=== PATIENT | male | born 1955 | race Caucasian/White ===

== ENCOUNTER 2019-03-14 20:17 | Emergency (ER) | payer MEDICARE, OTHER ==
[~2019-03-14] VITALS: Ht 180.3 cm; Wt 117.0 kg
[~2019-03-14 20:17] MED LIST: AMLODIPINE-BEN1 EACH PO; BACLOFEN10 MG PO; DIAZEPAM5 MG PO; FLAGYL250 MG PO; GABAPENTIN300 MG PO; GLIMEPIRIDE2 MG PO; HYDROCODON-ACE1 EAC9 PO; LEVAQUIN500 MG PO; NAPROXEN250 MG PO; NEXIUM40 MG PO; PREDNISONE20 MG PO
--- OUTSIDE RECORDS SUMMARY | 2019-03-14 20:20 | XMS REPORT | Clinical Summary ---
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 Active esomeprazole (NEXIUM) 40 Take 40 mg by 0 MG capsule mouth daily. Active glipiZIDE-metFORMIN Take 1 tablet 0 (METAGLIP) 5-500 mg per by mouth 2 tablet (two) times daily before meals. Active lidocaine (XYLOCAINE) 2 % Apply 0 jelly topically as needed. Active pravastatin (PRAVACHOL) Take 40 mg by 0 40 MG tablet mouth daily. Active diazePAM (VALIUM) 10 MG Take 10 mg by 0 tablet mouth every 6 (six) hours as needed for Anxiety. Active LORAZEPAM ORAL Take by mouth 0 as needed. Active amLODIPine-benazepril Take 1 0 (LOTREL 5-20) 5-20 mg per capsule by capsule mouth daily. Active HYDROcodone-acetaminophen Take 1 tablet 40 tablet 0 (NORCO 10-325) 10-325 mg by mouth 8 per tablet every 4 (four) hours as needed for Pain. Max Daily Amount: 6 tablets 03/14/2018 furosemide (LASIX) 20 MG Take 1 tablet 7 tablet 0 tablet (20 mg total) 8 by mouth daily for 7 days. 03/21/2018 gabapentin (NEURONTIN) Take 1 42 capsule 0 300 MG capsule capsule (300 8 mg total) by mouth 3 (three) times daily for 14 days. 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 Last Filed Vital Signs Not on file Plan of Treatment Not on file Implants Device Identifier Shelf Expiration Date Model / Serial / Lot Implanted Type Area Manufactur er [id number] 02/10/2019 4301-02 / / [id number] Memb [employer]ra[employer] Adhen [place] 5x6 Cement/Brian N/A: Abdomen GENZYME 4301-02 - [id number] ler/Adhesi DONAL: Implanted: Qty: 1 on 12/19/2016 by ve BIO-SURG Cristopher Gonzalez MD Procedures Comments Procedure Name Priority Date/Time Associated Diagnosis INTRAOPERATIVE PATH 11/27/2018 REPORT - SCAN 6:53 AM CDT after 03/13/2018 Results * INTRAOPERATIVE PATH REPORT - SCAN (11/27/2018 6:53 AM CDT) Narrative Performed At after 03/13/2018 Insurance Payer Benefit Subscriber ID Type Phone Address Plan / Group [facility] xxxxxxxxxxx MEDICARE ADV Advance Directives Patient has advance care planning documents, and code status on file. For more i nformation, please contact: [facility] [address] [place], [place] [id number] Date Inactivated Comments Code Status Date Activated 03/07/2018 7:27 PM Full Code 03/06/2018 12:44 PM This code status was determined by: Patient 03/06/2018 12:44 PM Full Code 03/06/2018 6:43 AM This code status was determined by: Patient 12/27/2016 4:30 PM Full Code 12/19/2016 8:48 AM This code status was determined by: Patient
--- OUTSIDE RECORDS SUMMARY | 2019-03-14 20:21 | XMS REPORT ---
Author Author [facility] Address Unknown Phone Unavailable Care Team Providers Care Sock Boarder Name Role Phone CHRISTY CORDOVA Unavailable Unavailable MELVIN CAMEJO Unavailable Unavailable MARIAM, OSVALDO JAEGER Unavailable Unavailable Problems This patient has no known problems. Allergies, Adverse Reactions, Alerts This patient has no known allergies or adverse reactions. Medications This patient has no known medications. Results Test Description Test Time Test Comments Text Results Atomic Results Result Comments AFB CULTURE + SMEAR 2018-04-20 13:38:00 CULTURE (BEAKER) (test oiof=9882) No acid-fast bacilli isolated in 42 days AFB SMEAR (BEAKER) (test vyfz=736) No acid fast bacilli seen FUNGUS CULTURE + [id number] 18:31:00* Test Item Value Reference Range Comments CULTURE (BEAKER) (test ebdr=9377) 1 out of 2 media Paecilomyces lilacinus FUNGUS SMEAR (BEAKER) (test qsir=8579) No fungi seen TISSUE [id number] 18:14:00Surgical Pathology Report Case: [id number] Authorizing Provider: Guanaco Cordova MD Collected: 03/06/2018 0957 Ordering Location: [facility] Received: 03/06/2018 1041 PERIOPERATIVE SERVICES Pathologist: Fadumo Newby MD Specimens: A) - Lymph Node, 2 and 4 Lymph nodes pocket containing at least 3 lymph nodes B) - Lung, Right Upper Lobe, RIGHT UPPER LOBE WEDGE RESECTION , FROZEN THE MARGINS C) - Lymph Node, Pulmonary Ligament, Station 9, STATION 9 LYMPH NODE -PERMANENT D) - Lymph Node, STATION 7 LYMPH NODE POCKET CONTAINING AT LEAST 4 LYMPH NODES E) - Lymph Node, Station 11 Lymph Node F) - Lymph Node, Station 10 Lymph Node A. LYMPH NODE, STATIONS 2 AND 4, EXCISION: - FOUR BENIGN LYMPH NODES (0/4)B. LUNG, RIGHT UPPER LOBE, WEDGE RESECTION AND PARIETAL PLEURA, ENBLOC RESECTION: - INVASIVE SQUAMOUS CELL CARCINOMA, POORLY DIFFERENTIATED - GREATEST DIMENSION OF TUMOR: 3.2 CM - TUMOR INVADES THROUGH THE VISCERAL PLEURA AND EXTENDS TO THE PARIETAL PLEURA - STAPLED PARENCHYMAL MARGIN AND INKED PARIETAL PLEURAL SURFACE, NEGATIVE FOR CARCINOMA - LYMPHOVASCULAR INVASION IS PRESENT - NEGATIVE FOR PERINEURAL INVASION - ONE LYMPH NODE, NEGATIVE FOR METASTATIC CARCINOMA (0/1) - PATHOLOGIC STAGE CLASSIFICATION: [id number] C. LYMPH NODE, STATION 9, EXCISION: - ONE BENIGN LYMPH NODE (0/1)D. LYMPH NODE, STATION 7, EXCISION: - FIVE BENIGN LYMPH NODES (0/5)E. LYMPH NODE, STATION 11, EXCISION: - ONE BENIGN LYMPH NODE (0/1)F. LYMPH NODE, STATION 10, EXCISION: - ONE BENIGN LYMPH NODE (0/1) Signing Pathologist Direct Phone Line: [phone] signed by Fadumo Newby MD on 03/13/2018 at 6:14 PMLUNG (Lung - All Specimens)SPECIMEN Procedure: Wedge resection Procedure: Parietal pleurectomy Specimen Laterality: Right TUMOR Tumor Site: Upper lobe Histologic Type: Invasive squamous cell carcinoma, keratinizing Histologic Grade: G3: Poorly differentiated : Tumor Size: Greatest dimension in Centimeters (cm): 3.2 Centimeters (cm) Additional Dimension in Centimeters (cm): 2.4 Centimeters (cm) Add itional Dimension in Centimeters (cm): 1.8 Centimeters (cm) Tumor Focality: Single tumor Tumor Extent: Visceral Pleura Invasion: Present Dire ct Invasion of Adjacent Structures: Adjacent structures present and involved : Parietal pleura Accessory Findings: Treatment Effect: No kno wn presurgical therapy Lymphovascular Invasion: Present : Lymphati c : Arterial MARGINS Margins: All margins are uninvolved by carcinoma Margins Examined: Parenchymal Margins Examined: parietal pleural miller rface/ margin Distance of Invasive Carcinoma from Closest Margin in Centimete rs (cm): 0.5 Centimeters (cm) Closest Margin: Parenchymal LYMPH NODES Number of Lymph Nodes Involved: 0 Number of Lymph Nodes Examined: 13 N odal Stations Examined: 2R: Upper paratracheal Alfonzo Stations Examined: 4R: Lower paratracheal Alfonzo Stations Examined: 9R: Pulmonary ligament Alfonzo Stations Examined: 10R: Hilar Alfonzo Stations Examined: 11R: Inte rlobar Alfonzo Stations Examined: 7: Subcarinal PATHOLOGIC STAGE CLASSIFICAT ION (pTNM, AJCC 8th Edition) Primary Tumor (pT): pT3 Regional Lymph Nodes (p N): pN0 [id number] neoplasm of lungThe specimen is recei lima in six parts labeled with the patient's name and accession number, which cor responds to the patient's same name and accession number on the accompanying req uisition form.Part A: Received in formalin labeled "lymph node" consists of a 3. 8 x 3.7 x 1.3 cm aggregate of noble-yellow fibroadipose tissue, which yields four candidate lymph nodes ranging from 0.2 to 0.4 cm in greatest dimension. Sections are submitted as follows: A1, two candidate lymph nodes, whole; A2, two bianca te lymph nodes, whole.Part B: Received fresh for intraoperative consultation and labeled "lung, right upper lobe" is a 9.9 x 4.6 x 2.2 cm lung wedge resection w ith a Y-shaped 9.4 x 4.2 cm staple line marking the parenchymal margin and a fir m noble-white fungating lesion on the pleural surface measuring 3.2 x 2.4 cm and l ocated 2.2 cm from the nearest staple line. The remainder of the pleural surface is a smooth and glistening noble-janette.The staple line is removed, and the speci men is serially sectioned along the short axis. The lesion has a depth of 1.8 cm and has an alternatively firm to soft noble-white cut surface with diffuse anthra cotic pigmentation. It measures 1.1 cm from the parenchymal margin. The remainde r of the lung parenchyma is a spongy, homogeneous and unremarkable noble-janette. R epresentative sections are submitted as follows.Ink code: Blue-parenchymal sita n, green-lesion at pleural surface.Section code: FSB1-B2, segment of parenchymal margin nearest to lesion; B3-B4, remainder of stapled margin; B5-B8, representa tive tumor nearest to parenchymal margin; B9-B10, personal service representative tumor at pleura l surface; B12-B13, personal service representative tumor; B14-B15, grossly normal lung parenchym a.Part C: Received in formalin labeled "lymph node pulmonary ligament station 9" consists of a 0.3 x 0.2 x 0.1 cm piece of noble to black soft tissue, which is miller bmitted in its entirety in cassette C1.Part D: Received in formalin labeled "sta tion 7 lymph node packet" consists of a 2.7 x 1.9 x 1.1 cm aggregate of noble-yell ow fibroadipose soft tissue, which yields five candidate lymph nodes ranging fro m 0.3 to 0.5 cm in greatest dimension. Program Assistant sections are submitted as follows: D1, three candidate lymph nodes, whole; D2, two candidate lymph nodes, whole.Part E: Received in formalin labeled "station 11 lymph node" consists of a 0.7 x 0.4 x 0.2 cm aggregate of red-brown soft tissue pieces, which are submitt ed in their entirety in cassette E1.Part F: Received in formalin labeled "lymph node" consists of a 0.4 x 0.4 x 0.2 cm piece of noble-brown soft tissue, which is submitted in toto in cassette F1. WY/ewPART B, LUNG, RIGHT UPPER LOBE, WEDGE RES ECTION: - NEGATIVE FOR INVASIVE CANCER (FEW DYSPLASTIC EPITHELIAL CELLS NEAR ON E SMALL AIRWAY) - THESE RESULTS ARE VERBALLY REPORTED TO DR. CORDOVA BY DR. NITHYA Youssef AT 11:16 A.M. A-F. Performed.The following special studies were performed on emmie snyder case and the interpretation is incorporated in the diagnostic report above:Emmie ramsey immunohistochemistry test was developed and its performance characteristics d etermined by [facility], Pathology Laboratory. It has not been cleared or approved by the U.S. Food and Drug Administration. The FDA has deter mined that such clearance or approval is not necessary. The test is used for cli nical purposes. It should not be regarded as investigational or for research. is laboratory is certified under the Clinical Laboratory Improvement Amendments of 1988 (CLIA-88) as qualified to perform high complexity clinical laboratory te sting.SURGICALLY OBTAINED CULTURE + GRAM [id number] 10:24:00* Test Item Value Reference Range Comments CULTURE (BEAKER) (test yttw=1057) See comment GRAM STAIN RESULT (BEAKER) (test bzfd=5967) <1+ WBCs GRAM STAIN RESULT (BEAKER) (test llxo=991492) No organisms seen <1+ Normal respiratory heidi presentPreviously reported organism is no longer reported. Please contact the Microbiology Department for additional information.RAD, CHEST, 1 VIEW, NON [id number] 15:18:00Reason for exam:->s/p chest tube removalShould this be performed at the bedside?->YesFINAL REPORT CLINICAL HISTORY: s/p chest tube removal TECHNIQUE: 1 view of the chest. COMPARISON: 03/07/2018 IMPRESSION: The right-sided chest tube has been removed. There is no pneumothorax. The medial right upper lung masslike opacity is unchanged. Pulmonary vascular congestive findings are again seen. There is no increasing pleural fluid. The cardiomediastinal silhouette is magnified by technique. Signed: Terrence Ramirez MDReport Verified Date/Time: 0 03/07/2018 15:18:08 Reading Location: [facility] C013W Consult Reading Room Elec tronically signed by: TERRENCE RAMIREZ M.D. on 03/07/2018 03:18 PM RAD, CHEST, 1 VIEW, NON [id number] 12:06:00Reason for exam:->ct to water sealShould this be performed at the bedside?->YesFINAL REPORT CLINICAL HISTORY: ct to water seal TECHNIQUE: 1 view of the chest. COMPARISON: 03/07/2018 IMPRESSION: Right apical chest tube is again seen without definitive evidence for pneumothorax. A medial right upper lung mass is again noted. Pulmonary vascular congestive findings are again seen. The cardiomediastinal silhouette is magnified by technique. Signed: Terrence Ramirez MDReport Verified Date/Time: 03/07/2018 12:06:46 Reading Location: [facility] Radiology Reading Room , CHEST, 1 VIEW, NON [id number] 07:24:00Reason for exam:->ptxShould this be performed at the bedside?->YesFINAL REPORT CLINICAL HISTORY: ptx TECHNIQUE: 1 view of the chest. COMPARISON: 03/05/2018 IMPRESSION: A right apical chest tube is again seen without definitive evidence for pneumothorax. Medial right upper lung mass is unchanged. Prominence of the pulmonary vasculature is again seen. The cardiomediastinal silhouette is magnified by technique. Cervical fusion hardware is again seen. Signed: Terrence Ramirez MDReport Verified Date/Time: 03/07/2018 07:24:36 Reading Location: [facility] Radiology Reading Room [id number] 03:25:00* Test Item Value Reference Range Comments MAGNESIUM (BEAKER) (test vtra=376) 2.0 mg/dL 1.6-2.6 BASIC METABOLIC [id number] 03:25:00* Test Item Value Reference Range Comments SODIUM (BEAKER) (test vvky=086) 133 meq/L 136-145 POTASSIUM (BEAKER) (test knhx=898) 4.1 meq/L 3.5-5.1 CHLORIDE (BEAKER) (test uwmz=710) 104 meq/L 98-107 CO2 (BEAKER) (test fzfq=931) 22 meq/L 22-29 BLOOD UREA NITROGEN (BEAKER) (test pemc=443) 17 mg/dL 7-21 CREATININE (BEAKER) (test qgqn=812) 0.77 mg/dL 0.57-1.25 GLUCOSE RANDOM (BEAKER) (test rgpv=642) 125 mg/dL 70-105 CALCIUM (BEAKER) (test bpru=674) 8.7 mg/dL 8.4-10.2 EGFR (BEAKER) (test yfut=2512) 102 mL/min/1.73 sq m ESTIMATED GFR IS NOT ACCURATE CREATININE CLEARANCE IN PREDICTING GLOMERULAR FILTRATION RATE. ESTIMATED GFR IS NOT APPLICABLE FOR DIALYSIS PATIENTS. CBC W/PLT COUNT & AUTO [id number] 03:12:00* Test Item Value Reference Range Comments WHITE BLOOD CELL COUNT (BEAKER) (test rnwu=784) 13.5 K/ L 3.5-10.5 RED BLOOD CELL COUNT (BEAKER) (test iibg=037) 4.68 M/ L 4.63-6.08 HEMOGLOBIN (BEAKER) (test gwhx=063) 13.7 GM/DL 13.7-17.5 HEMATOCRIT (BEAKER) (test bpgp=164) 42.8 % 40.1-51.0 MEAN CORPUSCULAR VOLUME (BEAKER) (test knim=462) 91.5 fL 79.0-92.2 MEAN CORPUSCULAR HEMOGLOBIN (BEAKER) (test adad=658) 29.3 pg 25.7-32.2 MEAN CORPUSCULAR HEMOGLOBIN CONC (BEAKER) (test hohd=192) 32.0 GM/DL 32.3-36.5 RED CELL DISTRIBUTION WIDTH (BEAKER) (test qvxo=339) 13.5 % 11.6-14.4 PLATELET COUNT (BEAKER) (test jrgo=699) 181 K/CU MM 150-450 MEAN PLATELET VOLUME (BEAKER) (test qvml=425) 10.8 fL 9.4-12.4 NUCLEATED RED BLOOD CELLS (BEAKER) (test awdr=384) 0 /100 WBC 0-0 NEUTROPHILS RELATIVE PERCENT (BEAKER) (test azgz=874) 79 % LYMPHOCYTES RELATIVE PERCENT (BEAKER) (test svbz=745) 10 % MONOCYTES RELATIVE PERCENT (BEAKER) (test jksn=524) 9 % EOSINOPHILS RELATIVE PERCENT (BEAKER) (test ajxr=394) 1 % BASOPHILS RELATIVE PERCENT (BEAKER) (test zkpr=312) 0 % NEUTROPHILS ABSOLUTE COUNT (BEAKER) (test coyw=725) 10.69 K/ L 1.78-5.38 LYMPHOCYTES ABSOLUTE COUNT (BEAKER) (test wwmh=079) 1.37 K/ L 1.32-3.57 MONOCYTES ABSOLUTE COUNT (BEAKER) (test ftqz=577) 1.22 K/ L 0.30-0.82 EOSINOPHILS ABSOLUTE COUNT (BEAKER) (test pmrj=771) 0.08 K/ L 0.04-0.54 BASOPHILS ABSOLUTE COUNT (BEAKER) (test iptt=173) 0.05 K/ L 0.01-0.08 IMMATURE GRANULOCYTES-RELATIVE PERCENT (BEAKER) (test dpwx=0019) 1 % 0-1 RAD, CHEST, 1 VIEW, NON [id number] 15:06:00Reason for exam:->ptxShould this be performed at the bedside?->YesFINAL REPORT TECHNIQUE: Frontal chest radiograph dated 03/06/2018. CLINICAL HISTORY: PTX COMPARISON STUDY: Chest radiograph dated 12/11/2017 IMPRESSION:There is a right-sided chest tube in place. Small amount of subcutaneous emphysema seen in the inferior lateral right chest wall. It is unclear of the linear lucency in the right apex a small pneumothorax versus subcutaneous emphysema. Small amount of bibasilar atelectasis. No pleural effusion. Cardiomediastinal silhouette is normal in size. No pulmonary edema. Anterior cervical fusion hardware is visualized in the cervical spine. No fracture. Signed: Rene White MDReport Verified Date/Time: 03/06/2018 15:06:07 Reading Location: [facility] Radiology Reading Room [id number] 13:23:00* Test Item Value Reference Range Comments MAGNESIUM (BEAKER) (test mdcx=270) 2.2 mg/dL 1.6-2.6 BASIC METABOLIC [id number] 13:23:00* Test Item Value Reference Range Comments SODIUM (BEAKER) (test ahog=087) 139 meq/L 136-145 POTASSIUM (BEAKER) (test tmtg=952) 4.6 meq/L 3.5-5.1 CHLORIDE (BEAKER) (test nvhy=722) 108 meq/L 98-107 CO2 (BEAKER) (test kakt=060) 21 meq/L 22-29 BLOOD UREA NITROGEN (BEAKER) (test lmul=266) 20 mg/dL 7-21 CREATININE (BEAKER) (test orfq=080) 1.04 mg/dL 0.57-1.25 GLUCOSE RANDOM (BEAKER) (test myuy=854) 142 mg/dL 70-105 CALCIUM (BEAKER) (test vgij=077) 8.9 mg/dL 8.4-10.2 EGFR (BEAKER) (test jizk=0934) 72 mL/min/1.73 sq m ESTIMATED GFR IS NOT ACCURATE CREATININE CLEARANCE IN PREDICTING GLOMERULAR FILTRATION RATE. ESTIMATED GFR IS NOT APPLICABLE FOR DIALYSIS PATIENTS. POTASSIUM-STAT [id number] 13:02:00* Test Item Value Reference Range Comments POTASSIUM (BEAKER) (test nuqv=764) 4.5 meq/L 3.6-5.5 HGB/HCT (H&H) - STAT [id number] 13:02:00* Test Item Value Reference Range Comments HEMOGLOBIN (BEAKER) (test xuac=393) 14.8 g/dL 13.0-16.8 HEMATOCRIT (BEAKER) (test httd=781) 44.0 % 40.0-50.0 CALCIUM, [id number] 13:02:00* Test Item Value Reference Range Comments CALCIUM IONIZED (BEAKER) (test yftt=890) 1.14 mmol/L 1.12-1.27 PH, BLOOD (BEAKER) (test ecsx=2196) 7.30 GLUCOSE-STAT [id number] 13:02:00* Test Item Value Reference Range Comments GLUCOSE RANDOM (BEAKER) (test ukdc=811) 138 mg/dL 70-110 CBC (HEMOGRAM ONLY)2018-03-06 12:53:00* Test Item Value Reference Range Comments WHITE BLOOD CELL COUNT (BEAKER) (test umge=949) 17.6 K/ L 3.5-10.5 RED BLOOD CELL COUNT (BEAKER) (test nekx=897) 4.78 M/ L 4.63-6.08 HEMOGLOBIN (BEAKER) (test dizp=041) 14.1 GM/DL 13.7-17.5 HEMATOCRIT (BEAKER) (test pxej=014) 42.6 % 40.1-51.0 MEAN CORPUSCULAR VOLUME (BEAKER) (test eore=796) 89.1 fL 79.0-92.2 MEAN CORPUSCULAR HEMOGLOBIN (BEAKER) (test iztr=582) 29.5 pg 25.7-32.2 MEAN CORPUSCULAR HEMOGLOBIN CONC (BEAKER) (test madx=282) 33.1 GM/DL 32.3-36.5 RED CELL DISTRIBUTION WIDTH (BEAKER) (test pmmo=062) 13.2 % 11.6-14.4 PLATELET COUNT (BEAKER) (test qaci=732) 184 K/CU MM 150-450 MEAN PLATELET VOLUME (BEAKER) (test ktbm=892) 10.8 fL 9.4-12.4 NUCLEATED RED BLOOD CELLS (BEAKER) (test vpzt=357) 0 /100 WBC 0-0 BLOOD GAS, [id number] 09:39:00* Test Item Value Reference Range Comments PH ARTERIAL (BEAKER) (test avsn=302) 7.24 7.35-7.45 PCO2 ARTERIAL (BEAKER) (test bawm=209) 59 mm Hg 35-45 PO2 ARTERIAL (BEAKER) (test kvkt=656) 77 mm Hg 80-90 O2 SATURATION ARTERIAL (BEAKER) (test kubm=515) 94.3 % 96.0-97.0 HCO3 ARTERIAL (BEAKER) (test dftg=928) 25 mmol/L 21-29 BASE EXCESS ARTERIAL (BEAKER) (test cwrc=553) -3.8 mmol/L -2.0-3.0 PATIENT TEMPERATURE (BEAKER) (test igel=5402) 35.4 FIO2 (BEAKER) (test crdz=2028) 100 GLUCOSE-STAT [id number] 09:39:00* Test Item Value Reference Range Comments GLUCOSE RANDOM (BEAKER) (test kofj=936) 162 mg/dL 70-110 HGB/HCT (H&H) - STAT [id number] 09:39:00* Test Item Value Reference Range Comments HEMOGLOBIN (BEAKER) (test dczc=107) 15.7 GM/DL 13.0-16.8 HEMATOCRIT (BEAKER) (test rwco=504) 46.0 % 40.0-50.0 POTASSIUM-STAT [id number] 09:39:00* Test Item Value Reference Range Comments POTASSIUM (BEAKER) (test vkhs=295) 4.7 meq/L 3.6-5.5 SODIUM NA-STAT [id number] 09:39:00* Test Item Value Reference Range Comments SODIUM (BEAKER) (test qcqy=843) 140 meq/L 135-148 CALCIUM, [id number] 09:38:00* Test Item Value Reference Range Comments CALCIUM IONIZED (BEAKER) (test kvfe=604) 1.19 mmol/L 1.12-1.27 PH, BLOOD (BEAKER) (test whxl=1018) 7.22 BASIC METABOLIC [id number] 08:00:00* Test Item Value Reference Range Comments SODIUM (BEAKER) (test lcfl=831) 137 meq/L 136-145 POTASSIUM (BEAKER) (test ciqu=188) 4.3 meq/L 3.5-5.1 CHLORIDE (BEAKER) (test uxwj=291) 104 meq/L 98-107 CO2 (BEAKER) (test grix=500) 23 meq/L 22-29 BLOOD UREA NITROGEN (BEAKER) (test avun=789) 19 mg/dL 7-21 CREATININE (BEAKER) (test voyz=747) 0.90 mg/dL 0.57-1.25 GLUCOSE RANDOM (BEAKER) (test qeii=817) 120 mg/dL 70-105 CALCIUM (BEAKER) (test ejtv=383) 10.2 mg/dL 8.4-10.2 EGFR (BEAKER) (test mvwh=4961) 85 mL/min/1.73 sq m ESTIMATED GFR IS NOT ACCURATE CREATININE CLEARANCE IN PREDICTING GLOMERULAR FILTRATION RATE. ESTIMATED GFR IS NOT APPLICABLE FOR DIALYSIS PATIENTS. [id number] 07:37:00* Test Item Value Reference Range Comments PARTIAL THROMBOPLASTIN TIME (BEAKER) (test nawd=120) 30.9 seconds 22.5-36.0 PROTHROMBIN TIME/[id number] 07:36:00* Test Item Value Reference Range Comments PROTIME (BEAKER) (test enri=800) 13.0 seconds 11.7-14.7 INR (BEAKER) (test pfyv=298) 1.0 <=5.9 RECOMMENDED COUMADIN/WARFARIN INR THERAPY RANGESSTANDARD DOSE: 2.0 - 3.0 Inclu linden: PROPHYLAXIS for venous thrombosis, systemic embolization; TREATMENT for kimberly ous thrombosis and/or pulmonary embolus.HIGH RISK: Target INR is 2.5-3.5 for pat ients with mechanical heart valves.CBC W/PLT COUNT & AUTO [id number] 07:19:00* Test Item Value Reference Range Comments WHITE BLOOD CELL COUNT (BEAKER) (test byco=702) 9.5 K/ L 3.5-10.5 RED BLOOD CELL COUNT (BEAKER) (test kwrg=688) 5.33 M/ L 4.63-6.08 HEMOGLOBIN (BEAKER) (test ghnr=012) 15.7 GM/DL 13.7-17.5 HEMATOCRIT (BEAKER) (test grny=441) 46.9 % 40.1-51.0 MEAN CORPUSCULAR VOLUME (BEAKER) (test tyjw=593) 88.0 fL 79.0-92.2 MEAN CORPUSCULAR HEMOGLOBIN (BEAKER) (test etnw=656) 29.5 pg 25.7-32.2 MEAN CORPUSCULAR HEMOGLOBIN CONC (BEAKER) (test jeyo=540) 33.5 GM/DL 32.3-36.5 RED CELL DISTRIBUTION WIDTH (BEAKER) (test vora=628) 13.2 % 11.6-14.4 PLATELET COUNT (BEAKER) (test shkw=119) 198 K/CU MM 150-450 MEAN PLATELET VOLUME (BEAKER) (test mkwm=854) 11.0 fL 9.4-12.4 NUCLEATED RED BLOOD CELLS (BEAKER) (test lech=742) 0 /100 WBC 0-0 NEUTROPHILS RELATIVE PERCENT (BEAKER) (test yfyc=829) 76 % LYMPHOCYTES RELATIVE PERCENT (BEAKER) (test joaa=739) 14 % MONOCYTES RELATIVE PERCENT (BEAKER) (test yvmj=198) 7 % EOSINOPHILS RELATIVE PERCENT (BEAKER) (test gjug=499) 1 % BASOPHILS RELATIVE PERCENT (BEAKER) (test wtyn=086) 1 % NEUTROPHILS ABSOLUTE COUNT (BEAKER) (test baxw=321) 7.26 K/ L 1.78-5.38 LYMPHOCYTES ABSOLUTE COUNT (BEAKER) (test tsnj=039) 1.30 K/ L 1.32-3.57 MONOCYTES ABSOLUTE COUNT (BEAKER) (test akjq=975) 0.70 K/ L 0.30-0.82 EOSINOPHILS ABSOLUTE COUNT (BEAKER) (test chkh=412) 0.13 K/ L 0.04-0.54 BASOPHILS ABSOLUTE COUNT (BEAKER) (test wuor=467) 0.07 K/ L 0.01-0.08 IMMATURE GRANULOCYTES-RELATIVE PERCENT (BEAKER) (test bxio=7335) 0 % 0-1 TISSUE [id number] 16:55:00Surgical Pathology Report Case: [id number] Authorizing Provider: Fredy Camejo MD Collected: 12/11/2017 1358 Ordering Location: [facility] Radiology Main Received: 12/11/2017 1611 Pathologist: Fadumo Newby MD Specimen: Lung, Right A. LUNG, RIGHT UPPER LOBE MASS, CT GUIDED CORE NEEDLE BIOPSY: - SQUAMOUS CELL CARCINOMA Signing Pathologist Direct Phone Line: [phone] signed by Fadumo Newby MD on 12/12/2017 at 4:55 [id number] upper lobe lung biopsy Specimen is received in formalin-filled container labeled with the patient's information and labeled "right upper lobe lung biopsy" and consists of five noble core biopsies ranging from 0.2 to 0.5 cm submitted entirely A1. CG/bc A. Immunostain for p40 is positive and OUMOU-3 is negative supporting the above diagnosis.RAD, CHEST, 1 VIEW, NON [id number] 16:42:00Reason for exam:->S/P right lung biopsyShould this be performed at the bedside?->YesFINAL REPORT TECHNIQUE: Frontal view of the chest. INDICATION: 62-year-old man after right lung biopsy. COMPARISON: Chest radiograph from earlier same date. FINDINGS: LINES/TUBES: None. LUNGS: Unchanged nodular opacity in the medial right upper lung zone correlates with recently biopsied mass. Left lung is clear. PLEURA: No pneumothorax or significant pleural effusion. HEART AND MEDIASTINUM: The cardiomediastinal silhouette is within normal limits. Tortuous thoracic aorta. SOFT TISSUES AND BONES: Unchanged partially visualized fusion hardware in the lower cervical spine. Soft tissues are unremarkable. IMPRESSION:No acute cardiopulmonary abnormalities after recent right lung biopsy. Signed: Chet Mendenhall MDReport Verified Date/Time: 12/11/2017 16:42:37 Reading Location: [facility] C013Y CT Body Reading Room , BIOPSY, [id number] 15:55:00Reason for Exam:-> Nodule of right lungFINAL REPORT PROCEDURE: CT-guided core biopsy of right upper lobe mass. Dose modulation, iterative reconstruction, and/or weight-based adjustment of the mA/kV was utilized to reduce the radiation dose to as low as reasonably achievable. INDICATION: 62-year-old man with nodule of right lung. COMPARISON: None. SEDATION: Intravenous moderate sedation was administered by radiology nursing and monitored under the direction of the undersigned radiologist. The patient's vital signs were monitored throughout the procedure and recorded in the patient's medical record by radiology nursing. Total intraservice time of sedation was 30 minutes. MEDICATIONS: 1.5 mg Versed, 75 mcg fentanyl DESCRIPTION: After obtaining informed written consent, the patient was brought to the CT scanner and placed in the supine position. Preliminary CT scan of the chest revealed 3.2 x 3 cm mass in the medial right upper lobe abutting the right mediastinum. This mass was targeted for biopsy. The overlying skin was prepped and draped in the usual, sterile fashion and local 1% lidocaine anesthesia was administered. Under CT guidance, a 19-gauge introducer needle was inserted into the anterior right chest and placed into the mass via an intercostal approach. The inner stylette was removed, and a 20-gauge Argon core biopsy was passed through the introducer and into the mass. Four core biopsy samples of the mass were obtained. The needles were removed. Follow-up CT scan revealed no pneumothorax or significant hematoma. There were no immediate complications. IMPRESSION:Uncomplicated CT-guided core biopsy of right upper lobe mass. Signed: Chet Mendenhall MDReport Verified Date/Time: 12/11/2017 15:55:27 Reading Location: [address] Body Reading Room , CHEST, 1 VIEW, NON [id number] 14:17:00Reason for exam:->S/P lung biopsyShould this be performed at the bedside?->NoFINAL REPORT TECHNIQUE: Frontal view of the chest. INDICATION: 62-year-old man after right lung biopsy. COMPARISON: CT-guided right lung biopsy from earlier same date. FINDINGS: LINES/TUBES: None. LUNGS: Subtle nodular opacity in the medial right upper lung zone correlates with recently biopsied mass. Left lung is clear. PLEURA: No pneumothorax or significant pleural effusion. HEART AND MEDIASTINUM: The cardiomediastinal silhouette is within normal limits. Tortuous thoracic aorta. SOFT TISSUES AND BONES: Partially visualized fusion hardware in the lower cervical spine. Soft tissues are unremarkable. IMPRESSION:No acute cardiopulmonary abnormalities after recent right lung biopsy. Signed: Chet Mendenhall MDReport Verified Date/Time: 12/11/2017 14:17:17 Reading Location: [facility] C013Y CT Body Reading Room /[id number] 11:03:00* Test Item Value Reference Range Comments PROTIME (BEAKER) (test jvyk=074) 13.1 seconds 11.7-14.7 INR (BEAKER) (test zghp=987) 1.0 <=5.9 PARTIAL THROMBOPLASTIN TIME (GARRY) (test urhw=656) 29.9 seconds 22.5-36.0 RECOMMENDED COUMADIN/WARFARIN INR THERAPY RANGESSTANDARD DOSE: 2.0 - 3.0 Inclu linden: PROPHYLAXIS for venous thrombosis, systemic embolization; TREATMENT for kimberly ous thrombosis and/or pulmonary embolus.HIGH RISK: Target INR is 2.5-3.5 for pat ients with mechanical heart valves.PLATELET [id number] 10:55:00* Test Item Value Reference Range Comments PLATELET COUNT (GARRY) (test kflk=120) 210 K/CU MM 150-450 MR, ABDOMEN, [id number] 17:36:00FINAL REPORT MRI of the abdomen. CLINICAL HISTORY: LUNG NODULE. COMPARISON STUDY: None. Technique: Multiplanar, multisequence imaging of the abdomen was acquired both pre and post administration of intravenous gadolinium in a dynamic fashion. No oral contrast was administered. FINDINGS: No pleural effusion is seen. The liver demonstrates a noncirrhotic morphology. Multiple cysts are seen throughout, the largest include a 3.9 x 1.9 cm lobulated septated cyst in midline, 1.9 x 1.6 cm cyst in the right hepatic dome, and multiple other cysts throughout. A 9 mm enhancing lesion is seen in the posterior segment of the right lobe with no washout or T2 weighted signal, most likely a small shunt. The main portal vein is widely patent measuring 1.7 cm. A tiny right renal cyst is seen. The spleen, pancreas, kidneys and adrenal glands are otherwise unremarkable. An area of high-grade narrowing is seen midportion of the gallbladder, possibly adenomyomatosis as some increased T2-weighted signal is seen in the submucosal region. The CBD is dilated measuring 9 mm no choledocholithiasis on this non-MRCP study. No dilated loops of bowel are seen to suggest obstruction. No ascites is seen. There is no suspicious adenopathy. The aorta is normal in caliber. The visualized osseous structures are unremarkable. IMPRESSION:1. Area of high-grade narrowing in the midportion of the gallbladder. This could represent a stricture related to adenomyomatosis but this cannot be said with certainty. Surgical consultation is suggested.2. CBD measuring 9 mm, dilated with no choledocholithiasis seen.3. Lobulated cyst at the hepatic midline which could be followed in 36 months time. Multiple other cysts are seen. They demonstrate no concerning features.4. Area of likely shunting in the posterior segment of the right lobe which could also be followed up. Signed: Randall Tafoyaeport Verified Date/Time: 11/23/2017 17:36:47 Reading Location: [address] Radiology Reading Room -[id number] 12:53:00* Test Item Value Reference Range Comments POC-CREATININE (BEAKER) (test kunt=2117) 0.7 mg/dL 0.6-1.3 TESTED AT [address] [address] POC-EGFR (BEAKER) (test ljok=6928) 114 mL/min/1.73M2 POCT-GLUCOSE [id number] 13:12:00* Test Item Value Reference Range Comments POC-GLUCOSE METER (BEAKER) (test slre=0849) 72 mg/dL 70-110 TESTED AT [address] [address] POCT-GLUCOSE [id number] 08:22:00* Test Item Value Reference Range Comments POC-GLUCOSE METER (BEAKER) (test eqtn=4792) 96 mg/dL 70-110 TESTED AT [address] [address] POCT-GLUCOSE [id number] 20:31:00* Test Item Value Reference Range Comments POC-GLUCOSE METER (BEAKER) (test jrau=2301) 106 mg/dL 70-110 TESTED AT [address] [address] POCT-GLUCOSE [id number] 17:18:00* Test Item Value Reference Range Comments POC-GLUCOSE METER (BEAKER) (test abkw=0768) 103 mg/dL 70-110 TESTED AT [address] [address] POCT-GLUCOSE [id number] 11:42:00* Test Item Value Reference Range Comments POC-GLUCOSE METER (BEAKER) (test stkj=0694) 124 mg/dL 70-110 TESTED AT [address] [address] POCT-GLUCOSE [id number] 07:24:00* Test Item Value Reference Range Comments POC-GLUCOSE METER (BEAKER) (test febh=7019) 99 mg/dL 70-110 TESTED AT [address] [address] POCT-GLUCOSE [id number] 20:57:00* Test Item Value Reference Range Comments POC-GLUCOSE METER (BEAKER) (test oozh=3256) 172 mg/dL 70-110 TESTED AT [address] [address] POCT-GLUCOSE [id number] 17:24:00* Test Item Value Reference Range Comments POC-GLUCOSE METER (BEAKER) (test rtvq=5987) 87 mg/dL 70-110 TESTED AT [address] [address] POCT-GLUCOSE [id number] 12:17:00* Test Item Value Reference Range Comments POC-GLUCOSE METER (BEAKER) (test sdvv=6961) 113 mg/dL 70-110 TESTED AT [address] [address] POCT-GLUCOSE [id number] 08:22:00* Test Item Value Reference Range Comments POC-GLUCOSE METER (BEAKER) (test jnxh=1590) 87 mg/dL 70-110 TESTED AT [address] [address] POCT-GLUCOSE [id number] 00:33:00* Test Item Value Reference Range Comments POC-GLUCOSE METER (BEAKER) (test adzn=6920) 75 mg/dL 70-110 TESTED AT [address] [address] POCT-GLUCOSE [id number] 17:57:00* Test Item Value Reference Range Comments POC-GLUCOSE METER (BEAKER) (test cinb=4713) 89 mg/dL 70-110 TESTED AT [address] [address] POCT-GLUCOSE [id number] 13:12:00* Test Item Value Reference Range Comments POC-GLUCOSE METER (BEAKER) (test dipl=2577) 124 mg/dL 70-110 TESTED AT [address] [address] POCT-GLUCOSE [id number] 12:20:00* Test Item Value Reference Range Comments POC-GLUCOSE METER (BEAKER) (test ogsi=7895) 153 mg/dL 70-110 TESTED AT [facility] [address] [facility] [address] [id number] 07:54:00* Test Item Value Reference Range Comments PHOSPHORUS (BEAKER) (test njkv=908) 3.7 mg/dL 2.3-4.7 [id number] 07:54:00* Test Item Value Reference Range Comments MAGNESIUM (BEAKER) (test qnjn=106) 1.8 mg/dL 1.6-2.6 BASIC METABOLIC [id number] 07:54:00* Test Item Value Reference Range Comments SODIUM (BEAKER) (test qivw=960) 144 meq/L 136-145 POTASSIUM (BEAKER) (test sfle=845) 3.6 meq/L 3.5-5.1 CHLORIDE (BEAKER) (test mpmq=969) 106 meq/L 98-107 CO2 (BEAKER) (test mfzf=759) 27 meq/L 22-29 BLOOD UREA NITROGEN (BEAKER) (test bjna=592) 4 mg/dL 7-21 CREATININE (BEAKER) (test zakm=100) 0.70 mg/dL 0.57-1.25 GLUCOSE RANDOM (BEAKER) (test wrab=713) 106 mg/dL 70-105 CALCIUM (BEAKER) (test cyef=541) 9.2 mg/dL 8.4-10.2 EGFR (BEAKER) (test gwoc=0419) 114 mL/min/1.73 sq m ESTIMATED GFR IS NOT ACCURATE CREATININE CLEARANCE IN PREDICTING GLOMERULAR FILTRATION RATE. ESTIMATED GFR IS NOT APPLICABLE FOR DIALYSIS PATIENTS. POCT-GLUCOSE [id number] 20:48:00* Test Item Value Reference Range Comments POC-GLUCOSE METER (BEAKER) (test reqb=3420) 175 mg/dL 70-110 TESTED AT [facility] [address] [facility] [address] POCT-GLUCOSE [id number] 08:56:00* Test Item Value Reference Range Comments POC-GLUCOSE METER (BEAKER) (test ywlo=9161) 102 mg/dL 70-110 TESTED AT [facility] [address] [facility] [address] CBC (HEMOGRAM ONLY)2016-12-23 05:43:00* Test Item Value Reference Range Comments WHITE BLOOD CELL COUNT (BEAKER) (test rnll=442) 11.2 K/ L 4.0-10.0 RED BLOOD CELL COUNT (BEAKER) (test reif=963) 4.47 M/ L 4.20-5.80 HEMOGLOBIN (BEAKER) (test wfdm=837) 12.9 GM/DL 13.0-16.8 HEMATOCRIT (BEAKER) (test dmcw=740) 39.7 % 40.0-50.0 MEAN CORPUSCULAR VOLUME (BEAKER) (test crtt=561) 88.9 fL 82.0-98.0 MEAN CORPUSCULAR HEMOGLOBIN (BEAKER) (test zmsd=546) 28.8 pg 27.0-33.0 MEAN CORPUSCULAR HEMOGLOBIN CONC (BEAKER) (test tsim=035) 32.4 GM/DL 32.0-36.0 RED CELL DISTRIBUTION WIDTH (BEAKER) (test lber=146) 13.0 % 10.3-14.2 PLATELET COUNT (BEAKER) (test xbvl=968) 263 K/CU MM 150-430 MEAN PLATELET VOLUME (BEAKER) (test vxzn=007) 8.3 fL 6.5-10.5 NUCLEATED RED BLOOD CELLS (BEAKER) (test urnb=893) 0 /100 WBC 0-0 0.00POCT-GLUCOSE [id number] 21:08:00* Test Item Value Reference Range Comments POC-GLUCOSE METER (BEAKER) (test kclp=7243) 162 mg/dL 70-110 TESTED AT [facility] [address] [facility] [address] URINE [id number] 10:27:00* Test Item Value Reference Range Comments CULTURE (BEAKER) (test frfy=8001) No growth [id number] 04:10:00* Test Item Value Reference Range Comments PHOSPHORUS (BEAKER) (test pvuj=225) 2.1 mg/dL 2.3-4.7 [id number] 04:10:00* Test Item Value Reference Range Comments MAGNESIUM (BEAKER) (test ymjy=253) 1.8 mg/dL 1.6-2.6 BASIC METABOLIC [id number] 04:10:00* Test Item Value Reference Range Comments SODIUM (BEAKER) (test futz=058) 138 meq/L 136-145 POTASSIUM (BEAKER) (test tkow=311) 3.8 meq/L 3.5-5.1 CHLORIDE (BEAKER) (test sxio=092) 103 meq/L 98-107 CO2 (BEAKER) (test iucj=465) 24 meq/L 22-29 BLOOD UREA NITROGEN (BEAKER) (test obza=239) 4 mg/dL 7-21 CREATININE (BEAKER) (test nxrm=548) 0.67 mg/dL 0.57-1.25 GLUCOSE RANDOM (BEAKER) (test aoif=229) 93 mg/dL 70-105 CALCIUM (BEAKER) (test ovfs=835) 9.2 mg/dL 8.4-10.2 EGFR (BEAKER) (test wduv=0195) 120 mL/min/1.73 sq m ESTIMATED GFR IS NOT ACCURATE CREATININE CLEARANCE IN PREDICTING GLOMERULAR FILTRATION RATE. ESTIMATED GFR IS NOT APPLICABLE FOR DIALYSIS PATIENTS. CBC (HEMOGRAM ONLY)2016-12-22 03:50:00* Test Item Value Reference Range Comments WHITE BLOOD CELL COUNT (BEAKER) (test xebv=899) 11.6 K/ L 4.0-10.0 RED BLOOD CELL COUNT (BEAKER) (test tidc=933) 4.19 M/ L 4.20-5.80 HEMOGLOBIN (BEAKER) (test tfwx=844) 12.2 GM/DL 13.0-16.8 HEMATOCRIT (BEAKER) (test stjd=820) 38.3 % 40.0-50.0 MEAN CORPUSCULAR VOLUME (BEAKER) (test qqoj=257) 91.3 fL 82.0-98.0 MEAN CORPUSCULAR HEMOGLOBIN (BEAKER) (test omue=853) 29.2 pg 27.0-33.0 MEAN CORPUSCULAR HEMOGLOBIN CONC (BEAKER) (test lqhm=862) 32.0 GM/DL 32.0-36.0 RED CELL DISTRIBUTION WIDTH (BEAKER) (test edzx=963) 12.1 % 10.3-14.2 PLATELET COUNT (BEAKER) (test jkeq=240) 219 K/CU MM 150-430 MEAN PLATELET VOLUME (BEAKER) (test vykm=227) 8.4 fL 6.5-10.5 NUCLEATED RED BLOOD CELLS (BEAKER) (test qwzg=563) 0 /100 WBC 0-0 0.00POCT-GLUCOSE [id number] 22:09:00* Test Item Value Reference Range Comments POC-GLUCOSE METER (BEAKER) (test wxmu=1570) 110 mg/dL 70-110 TESTED AT [address] [address] POCT-GLUCOSE [id number] 16:42:00* Test Item Value Reference Range Comments POC-GLUCOSE METER (BEAKER) (test qsin=8125) 115 mg/dL 70-110 TESTED AT [address] [address] POCT-GLUCOSE [id number] 12:22:00* Test Item Value Reference Range Comments POC-GLUCOSE METER (BEAKER) (test pmrk=8712) 104 mg/dL 70-110 TESTED AT [address] [address] POCT-GLUCOSE [id number] 08:41:00* Test Item Value Reference Range Comments POC-GLUCOSE METER (BEAKER) (test vybl=5232) 101 mg/dL 70-110 TESTED AT [place] [address] TISSUE [id number] 08:32:00* Test Item Value Reference Range Comments LAB AP CPT CODE (BEAKER) (test ajcd=7931) [address] POCT-GLUCOSE [id number] 20:55:00* Test Item Value Reference Range Comments POC-GLUCOSE METER (BEAKER) (test ilvz=7548) 122 mg/dL 70-110 TESTED AT [address] [address] POCT-GLUCOSE [id number] 12:38:00* Test Item Value Reference Range Comments POC-GLUCOSE METER (BEAKER) (test zsfg=8602) 142 mg/dL 70-110 TESTED AT [address] [address] POCT-GLUCOSE [id number] 08:10:00* Test Item Value Reference Range Comments POC-GLUCOSE METER (BEAKER) (test sbel=1917) 109 mg/dL 70-110 TESTED AT [place] [address] URINALYSIS W/ [id number] 05:46:00* Test Item Value Reference Range Comments COLOR (BEAKER) (test innf=555) Yellow CLARITY (BEAKER) (test azco=650) Hazy SPECIFIC GRAVITY UA (BEAKER) (test dtpu=191) 1.020 1.001-1.035 PH UA (BEAKER) (test oqmj=975) 5.5 5.0-8.0 PROTEIN UA (BEAKER) (test tdmv=383) 20 mg/dL Negative GLUCOSE UA (BEAKER) (test xqoe=421) Negative Negative KETONES UA (BEAKER) (test glap=324) Negative Negative BILIRUBIN UA (BEAKER) (test wfhg=053) Negative Negative BLOOD UA (BEAKER) (test kcwn=935) Moderate Negative NITRITE UA (BEAKER) (test cwma=405) Negative Negative LEUKOCYTE ESTERASE UA (BEAKER) (test hvbj=557) Large Negative UROBILINOGEN UA (BEAKER) (test omka=882) 0.2 mg/dL 0.2-1.0 RBC UA (BEAKER) (test jlen=576) 5 /HPF WBC UA (BEAKER) (test ybnu=721) 25 /HPF BACTERIA (BEAKER) (test rdud=392) Rare MUCUS (BEAKER) (test efvn=1380) Occasional SOURCE(BEAKER) (test gzbs=9698) [id number] 05:29:00* Test Item Value Reference Range Comments PHOSPHORUS (BEAKER) (test ktwx=800) 3.8 mg/dL 2.3-4.7 [id number] 05:29:00* Test Item Value Reference Range Comments MAGNESIUM (BEAKER) (test qrmk=084) 1.9 mg/dL 1.6-2.6 BASIC METABOLIC [id number] 05:29:00* Test Item Value Reference Range Comments SODIUM (BEAKER) (test lwsz=343) 138 meq/L 136-145 POTASSIUM (BEAKER) (test hsiy=705) 4.5 meq/L 3.5-5.1 CHLORIDE (BEAKER) (test bqms=079) 105 meq/L 98-107 CO2 (BEAKER) (test ihoj=004) 24 meq/L 22-29 BLOOD UREA NITROGEN (BEAKER) (test cvmn=216) 9 mg/dL 7-21 CREATININE (BEAKER) (test vrfy=871) 0.75 mg/dL 0.57-1.25 GLUCOSE RANDOM (BEAKER) (test fpdv=052) 108 mg/dL 70-105 CALCIUM (BEAKER) (test qpzu=573) 9.1 mg/dL 8.4-10.2 EGFR (BEAKER) (test hpcc=5251) 105 mL/min/1.73 sq m ESTIMATED GFR IS NOT ACCURATE CREATININE CLEARANCE IN PREDICTING GLOMERULAR FILTRATION RATE. ESTIMATED GFR IS NOT APPLICABLE FOR DIALYSIS PATIENTS. HEMOGLOBIN AND [id number] 05:21:00* Test Item Value Reference Range Comments HEMOGLOBIN (BEAKER) (test iofl=247) 14.2 GM/DL 13.0-16.8 HEMATOCRIT (BEAKER) (test ielt=577) 45.1 % 40.0-50.0 POCT-GLUCOSE [id number] 21:18:00* Test Item Value Reference Range Comments POC-GLUCOSE METER (BEAKER) (test rrvx=0612) 140 mg/dL 70-110 TESTED AT [address] [address] POCT-GLUCOSE [id number] 14:33:00* Test Item Value Reference Range Comments POC-GLUCOSE METER (BEAKER) (test phwz=3665) 142 mg/dL 70-110 TESTED AT [address] [address] POCT-GLUCOSE [id number] 09:11:00* Test Item Value Reference Range Comments POC-GLUCOSE METER (BEAKER) (test svyb=4578) 104 mg/dL 70-110 TESTED AT [address] [address]
[2019-03-14] MEDS ORDERED: ALBUTEROL/IPRATROPIUM 3 ML NEB NEB ONE (20:30)
[2019-03-14] MEDS ORDERED: METHYLPREDNISOLONE SOD SUCC 125 MG/2ML VIAL IV ONE (20:30)
--- NOTE | 2019-03-14 20:56 | NUR ---
AKANKSHA COMMERCIAL COORDINATOR TO TRIAGE FOR INITIAL EVAL
[2019-03-14] MEDS ORDERED: DEXAMETHASONE SOD PHOS 10 MG/1 ML VIAL IM ONE (21:00)
[2019-03-14] MEDS ORDERED: MORPHINE SULFATE INJ 4 MG/ML INJ 1ML IM PRN (21:00)
[2019-03-14] MEDS ORDERED: ONDANSETRON HCL 4 MG ORAL DISINTEGRATING TAB PO ONE (21:00)
[2019-03-14] MEDS ORDERED: KETOROLAC TROMETHAMINE 60 MG/2 ML VIAL IM ONE (21:00)
[2019-03-14] MEDS ORDERED: PREDNISONE 20 MG TAB ONE (21:03)
[2019-03-14] MEDS ORDERED: MORPHINE SULFATE INJ 4 MG/ML INJ 1ML ONE (21:04)
[2019-03-14] MEDS ORDERED: ORPHENADRINE CITRATE 30 MG/ML VIAL ONE (21:08)
[2019-03-14] MEDS ORDERED: PREDNISONE 20 MG TAB PO ONE (21:15)
[2019-03-14] MEDS ORDERED: FENTANYL 50 MCG/HR PATCH TOP SCH (22:00)
== END 2019-03-14 22:16 | disposition home or self-care (01) ==
LOC: ER 20:17
DX: S39.012A Strain of muscle, fascia and tendon of lower back, initial encounter (principal); M54.41 Lumbago with sciatica, right side; G89.29 Other chronic pain; I10 Essential (primary) hypertension; E11.9 Type 2 diabetes mellitus without complications; E78.5 Hyperlipidemia, unspecified; Z79.84 Long term (current) use of oral hypoglycemic drugs; Z79.52 Long term (current) use of systemic steroids; X58.XXXA Exposure to other specified factors, initial encounter
CPT/HCPCS: 99283; J1885; J2270; J2360; J7512; Q0162

== ENCOUNTER 2019-03-18 04:31 | Observation (INO) | payer MEDICARE ==
[~2019-03-18] VITALS: Ht 180.3 cm; Wt 117.0 kg
[2019-03-18] VITALS (8 sets, daily range): BP systolic 127–173; BP diastolic 78–92
--- OUTSIDE RECORDS SUMMARY | 2019-03-18 04:37 | XMS REPORT | Clinical Summary ---
Author Author DAVE [facility] Organization [facility] Address Unknown Phone Unavailable Care Team Providers Care Floral Arranger Name Role Phone Pcp, No PCP Unavailable [...] for Pain. Max Daily Amount: 6 tablets 03/21/2018 gabapentin (NEURONTIN) Take 1 42 capsule 0 300 MG capsule capsule (300 8 mg total) by mouth 3 (three) times daily for 14 days. 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) (Primary Dx) 04/19/2018 Outside Orders Radiology after 03/17/2018 Social History Date Tobacco Use Types Packs/Day [...] / Lot Implanted Type Area Manufactur er [id number] 02/10/2019 4301-02 / / [id number] Memb Seprafilm Adhen Londono 5x6 Cement/Brian N/A: Abdomen GENZYME 4301-02 - [id number] ler/Adhesi DONAL: Implanted: Qty: 1 on 12/19/2016 by ve BIO-SURG Cristopher Gonzalez MD Procedures Comments Procedure Name Priority Date/Time Associated Diagnosis INTRAOPERATIVE PATH 11/27/2018 REPORT - SCAN 6:53 AM CDT after 03/17/2018 Results * INTRAOPERATIVE PATH REPORT - SCAN (11/27/2018 6:53 AM CDT) Narrative Performed At after 03/17/2018 Insurance Payer Benefit Subscriber ID Type Phone Address Plan / Group [facility] xxxxxxxxxxx MEDICARE ADV Advance Directives Patient has advance care planning documents, and code status on file. For more i nformation, please contact: [facility] [address] [place] [address] Date Inactivated Comments Code Status Date Activated 03/07/2018 7:27 PM Full Code 03/06/2018 12:44 PM This code status was determined by: Patient 03/06/2018 12:44 PM Full Code 03/06/2018 6:43 AM This code status was determined by: Patient 12/27/2016 4:30 PM Full Code 12/19/2016 8:48 AM This code status was determined by: Patient
--- OUTSIDE RECORDS SUMMARY | 2019-03-18 04:39 | XMS REPORT | Clinical Summary ---
Author Author DAVE [facility] Organization [facility] Address Unknown Phone Unavailable Care Team Providers Care Computer Scientist Name Role Phone Pcp, No PCP Unavailable [...] / Lot Implanted Type Area Manufactur er [id number] 02/10/2019 4301-02 / / [id number] Memb Seprafilm Adhen [place]o 5x6 Cement/Brian N/A: Abdomen GENZYME 4301-02 - [id number] ler/Adhesi DONAL: Implanted: Qty: 1 on 12/19/2016 by ve BIO-SURG Cristopher Gonzalez MD Procedures Comments Procedure Name Priority Date/Time Associated Diagnosis INTRAOPERATIVE PATH 11/27/2018 REPORT - SCAN 6:53 AM CDT after 03/17/2018 Results * INTRAOPERATIVE PATH REPORT - SCAN (11/27/2018 6:53 AM CDT) Narrative Performed At after 03/17/2018 Insurance Payer Benefit Subscriber ID Type Phone Address Plan / Group [facility] xxxxxxxxxxx MEDICARE ADV Advance Directives Patient has advance care planning documents, and code status on file. For more i nformation, please contact: [facility] [address] [place] [address] Date Inactivated Comments Code Status Date Activated 03/07/2018 7:27 PM Full Code 03/06/2018 12:44 PM This code status was determined by: Patient 03/06/2018 12:44 PM Full Code 03/06/2018 6:43 AM This code status was determined by: Patient 12/27/2016 4:30 PM Full Code 12/19/2016 8:48 AM This code status was determined by: Patient
[2019-03-18] MEDS ORDERED: ONDANSETRON HCL INJ 2MG/ML 2ML 2 MG/ML VIAL IV STA (04:44)
[2019-03-18] MEDS ORDERED: HYDROMORPHONE 1MG/1ML INJ IV STA (04:44)
[2019-03-18] MEDS: SODIUM CHLORIDE 0.9% 1000ML 1,000 ML IV SCH ×3 (05:00→21:00)
[2019-03-18] MEDS ORDERED: DEXTROSE 50% SYRINGE 50 ML IV PRN (05:00)
[2019-03-18 05:08] LABS: BASOPHILS # (AUTO) 0.1 (0.0-0.1); BASOPHILS % 0.5 % (0.0-1.0); EOSINOPHILS # (AUTO) 0.1 (0.0-0.4); EOSINOPHILS % 0.8 % (0.0-6.0); HEMATOCRIT 49.1 % (38.2-49.6); LYMPHOCYTES # (AUTO) 2.3 (1.0-3.2); LYMPHOCYTES % 22.8 % (18.0-39.1); MEAN CORPUSCULAR HEMOGLOBIN 29.4 pg (28-32); MEAN CORPUSCULAR HGB CONC 32.6 g/dL (31-35); MEAN CORPUSCULAR VOLUME 90.3 fL (81-99); MONOCYTES # (AUTO) 0.8 (0.2-0.8); MONOCYTES % 8.2 % (4.4-11.3); NEUTROPHILS # (AUTO) 6.9 (2.1-6.9); NEUTROPHILS % 67.4 % (38.7-80.0); PLATELET COUNT 193 x10e3/uL (140-360); RED BLOOD COUNT 5.44 x10e6/uL (4.3-5.7); RED CELL DISTRIBUTION WIDTH 13.5 % (11.7-14.4)
--- NOTE | 2019-03-18 05:10 | NUR ---
patient is a new admit that arrived via stretcher. patient is awake and talking. patient has been assisted into the bed. bed is in the lowest position and call campos is within reach. will continue to monitor patient.
--- OUTSIDE RECORDS SUMMARY | 2019-03-18 05:10 | XMS REPORT | Clinical Summary ---
Author Author DAVE [facility] Organization [facility] Address Unknown Phone Unavailable Care Team Providers Care Yarn Handler Name Role Phone Pcp, No PCP Unavailable [...] / Lot Implanted Type Area Manufactur er [id number] 02/10/2019 4301-02 / / [id number] Memb Seprafilm Adhen Londono 5x6 Cement/Brian N/A: Abdomen GENZYME 4301-02 - [id number] ler/Adhesi DONAL: Implanted: Qty: 1 on 12/19/2016 [...] file. For more i nformation, please contact: [facility] [address] [place] [address] Date Inactivated Comments Code Status Date Activated 03/07/2018 7:27 PM Full Code 03/06/2018 12:44 PM This code status was determined by: Patient 03/06/2018 12:44 PM Full Code 03/06/2018 6:43 AM This code status was determined by: Patient 12/27/2016 4:30 PM Full Code 12/19/2016 8:48 AM This code status was determined by: Patient
[2019-03-18 05:14] LABS: INR 0.83; PROTHROMBIN TIME 11.9 seconds (11.9-14.5)
[2019-03-18 05:15] LABS: PARTIAL THROMBOPLASTIN TIME 27.6 seconds (23.8-35.5)
[2019-03-18 05:20] LABS: ALANINE AMINOTRANSFERASE 26 IU/L (0-55); ALBUMIN 3.9 g/dL (3.5-5.0); ALBUMIN/GLOBULIN RATIO 1.1 (0.8-2.0); ALKALINE PHOSPHATASE 69 IU/L (40-150); ANION GAP 17.2 mmol/L (8-16); BLOOD UREA NITROGEN 18 mg/dL (7-26); BUN/CREATININE RATIO 20 (6-25); CARBON DIOXIDE 27 mmol/L (22-29); CHLORIDE 100 mmol/L (98-107); CREATININE, SERUM 0.91 mg/dL (0.72-1.25); EST GLOMERULAR FILTRATION RATE > 60 ML/MIN (60-); GLUCOSE 108 mg/dL (74-118); POTASSIUM 4.2 mmol/L (3.5-5.1); SODIUM 140 mmol/L (136-145)
--- NOTE | 2019-03-18 07:03 | NUR ---
report given to morning nurse. patient is resting comfortably in bed. bed is in lowest position and call campos is within reach.
--- NOTE | 2019-03-18 07:09 | Diagnostic Imaging Report ---
ADDENDUM #1 There are old left sided rib fractures. Signed by: Dr. Titus Coelho DO on 03/18/2019 7:24 AM ORIGINAL REPORT EXAM: CHEST SINGLE (PORTABLE), AP Portable DATE: 03/18/2019 Time stamp on exam: 4:55 AM INDICATION: Preoperative COMPARISON: None FINDINGS: LINES/TUBES: Partially visualized plate overlying the lower cervical spine. LUNGS: No consolidations or edema. Linear scarring in the right upper lobe. PLEURA: No effusions or pneumothorax. HEART AND MEDIASTINUM: Normal size and contour. BONES AND SOFT TISSUES: No acute findings. IMPRESSION: No acute thoracic abnormality. Signed by: Dr. Titus Coelho DO on 03/18/2019 7:06 AM
[2019-03-18] MEDS: INSULIN REGULAR, HUMAN 100 UNIT/1 ML 3ML VIAL SQ SCH ×4 (07:17→21:00)
[2019-03-18] MEDS ORDERED: LORAZEPAM INJ 2 MG/ML VIAL IV ONE (08:00)
[2019-03-18] MEDS: HYDROMORPHONE 1MG/1ML INJ IV PRN ×4 (08:07→22:59)
[2019-03-18] MEDS: ONDANSETRON HCL INJ 2MG/ML 2ML 2 MG/ML VIAL IV PRN ×4 (08:08→22:59)
--- NOTE | 2019-03-18 09:07 | NUR ---
pt was unable to complete MRI. pagecollette HILL to update.
--- NOTE | 2019-03-18 10:11 | NUR ---
pt was able to complete mri, aware
--- NOTE | 2019-03-18 11:18 | Diagnostic Imaging Report ---
Examination: MRI SPINE LUMBAR WO CONTRAST History: 61-year-old male with chronic low right back pain radiating down the right thigh, knee, calf and foot. Comparison studies: MRI Lumbar Spine 10/13/2016 and 10/14/2016 Technique: Sagittal, coronal and axial T2. Patient refused to perform further scanning which includes sagittal T1 and STIR; axial spin density oblique. Findings: Limited study. Number of lumbar vertebral bodies: Five with transitional vertebrae; rudimentary discs at S1-S2 and S2-S3. Alignment: Normal lordosis. No scoliosis. Soft tissues: No T2 hyperintense inflammatory changes. Posterior paraspinal soft tissues and muscles: No abnormality. Lower thoracic cord: Normal in signal and morphology. The tip of the conus is at L1. Cauda equina: No masses. No arachnoiditis. Vertebrae: No fractures, infection or neoplasm. A hemangioma is again demonstrated in the posterior aspect of the L1 vertebral body, measuring 8 mm in craniocaudal dimension. Degenerative changes: Overall interval progression of degenerative change. L1-L2: Central, left central, subarticular and foraminal disc protrusion superimposed a diffuse disc bulge and prominent epidural fat result in mild bilateral neural foraminal narrowing and moderate canal stenosis. L2-L3: Central disc extrusion with inferior migration and an 8 mm hypointense lesion at the posterior margin of the superior endplate of L3, concerning for a sequestered disc. Diffuse disc bulge, prominent epidural fat and mild ligamentum flavum thickening result in moderate bilateral neural foraminal narrowing and moderate canal stenosis. L3-L4: Diffuse disc bulge. Prominent epidural fat result in narrowing of the canal by a moderate degree. No foraminal stenosis. L4-L5: Large diffuse disc bulge and bilateral facet arthropathy result in severe bilateral neural foraminal narrowing with impingement of the exiting bilateral L4 nerve roots. Prominent epidural fat results in tapering of the canal by a severe degree. L5-S1: Diffuse disc bulge and facet arthropathy result in severe right and mild mild to moderate left foraminal narrowing with impingement of the exiting right L5 nerve root. T-shaped tapered appearance of the canal due to prominent epidural fat. IMPRESSION: 1. Interval progression of degenerative change at L1-L2 and L2-L3 with moderate canal stenosis at both levels and moderate bilateral foraminal narrowing at L2-L3 when compared to prior lumbar spine MRI performed October 14 and October 13, 2016. 2. A new 8 mm hypointense rounded lesion is seen posterior to the superior endplate of L3, concerning for sequestered disc. 3. Unchanged prominent epidural fat with tapering of the canal to ultimately become T-shaped at the L5-S1 level. 4. Unchanged severe bilateral neural foraminal narrowing and impingement of the bilateral exiting L4 nerve roots at L4-L5. 5. Unchanged severe right foraminal narrowing at L5-S1. Signed by: Dr. Mary Mercado M.D. on 03/18/2019 11:15 AM
[2019-03-18] MEDS ORDERED: DIAZEPAM 5 MG TAB PO PRN (12:00)
[2019-03-18] MEDS ORDERED: PREDNISONE 20 MG TAB PO SCH (12:00)
[2019-03-18] MEDS: HYDROCODONE/APAP 10MG-325MG TAB PO SCH ×3 (14:11→21:07)
[2019-03-18] MEDS: PANTOPRAZOLE SOD 40 MG TABEC PO SCH (14:11)
[2019-03-18] MEDS: GABAPENTIN 300 MG CAP PO SCH ×2 (14:12→21:07)
--- NOTE | 2019-03-18 16:19 | NUR ---
pt states he doesnt take insulin and wont. refused
[2019-03-18] MEDS ORDERED: GLIPIZIDE5 MG PO (17:43)
[2019-03-18] MEDS ORDERED: PRAVASTATIN SOD40 MG (17:43)
[2019-03-18] MEDS ORDERED: METFORMIN HCL500 MG PO (17:43)
[2019-03-18] MEDS: NAPROXEN 250 MG TAB PO SCH (17:58)
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
[2019-03-18] MEDS ORDERED: BACLOFEN 10 MG TAB PO SCH (21:00)
[2019-03-19] VITALS: BP 129/73
--- NOTE | 2019-03-19 02:07 | Consultation ---
DATE OF CONSULTATION: 03/18/2019 REASON FOR CONSULTATION: Chronic pain. HISTORY OF PRESENT ILLNESS: The patient is a 63-year-old man with chronic pain disorder, who has been taking 4 Vicodin per day for the past 10 years. Two years ago, he underwent right L4-5 laminotomy and diskectomy by me, after which his right leg pain improved, but he has continued to have tingling in the right leg and chronic back pain since then. He now presents with 3 to 4 day history of increased severity of low back pain, which he says radiates down the right leg. He denies any pain on the left. He could not get an outpatient appointment to come and see me and he does not have a pain specialist. He is under the [facility]. He therefore elected to come to the emergency room and get admitted. An MRI was performed this morning and I was consulted. PHYSICAL EXAMINATION: On examination, the patient is sitting up in bed. Straight leg raising provokes right buttock pain at 30 degrees. Motor strength is full and symmetric in the legs. Sensory testing to light touch and pinprick reveals chronically diminished sensation over the anterior aspect of the right morgan and dorsum of right foot. Deep tendon reflexes are 1+ and symmetric at the patella and Achilles tendons. Plantar responses are flexor. He is able to ambulate independently. IMAGING DATA: MRI of the lumbar spine was reviewed. There is evidence of a previous lateral foraminotomy at L4-5 with residual foraminal stenosis, but no acute disk herniation. There is multilevel degenerative disk disease. At L2-3, there is a new left-sided small disk herniation, which was not present 2 years ago. However, this is on his asymptomatic side. There are no new or acute findings on the right side. RECOMMENDATIONS: The patient does not require any further surgical treatment. He needs to be under the care of a pain specialist. I recommend consulting pain management for an epidural steroid injection while he is in the hospital and then having him go back to his primary care and be referred to a pain specialist for chronic pain management. I will sign off. Hernesto Schneider MD PP/LAURI /[id number]
[2019-03-19 04:46] VITALS: BP 147/78
[2019-03-19] MEDS: SODIUM CHLORIDE 0.9% 1000ML 1,000 ML IV SCH (05:00)
[2019-03-19] MEDS: ONDANSETRON HCL INJ 2MG/ML 2ML 2 MG/ML VIAL IV PRN ×2 (05:10→09:24)
[2019-03-19] MEDS: HYDROMORPHONE 1MG/1ML INJ IV PRN ×4 (05:11→16:50)
--- NOTE | 2019-03-19 07:19 | NUR ---
Report given to oncoming nurse Blank, walking round done.
[2019-03-19] MEDS: INSULIN REGULAR, HUMAN 100 UNIT/1 ML 3ML VIAL SQ SCH ×3 (07:30→16:30)
[2019-03-19 08:00] VITALS: BP 136/89
[2019-03-19] MEDS ORDERED: GLIMEPIRIDE 2 MG TAB PO SCH (08:00)
[2019-03-19 08:03] VITALS: BP 147/78
[2019-03-19] MEDS ORDERED: NON-FORMULARY MEDICATION (Amlodipine Besylate/Benazepril (Amlodipine-Benazepril 5-20 Mg) 1 PO SCH (09:00)
[2019-03-19] MEDS ORDERED: BENAZEPRIL HCL 10 MG TAB PO SCH (09:00)
[2019-03-19] MEDS ORDERED: AMLODIPINE BESYLATE 5 MG TAB PO SCH (09:00)
[2019-03-19] MEDS: GLIPIZIDE 5 MG TAB PO SCH ×2 (09:09→15:49)
[2019-03-19] MEDS: PANTOPRAZOLE SOD 40 MG TABEC PO SCH (09:09)
[2019-03-19] MEDS: HYDROCODONE/APAP 10MG-325MG TAB PO SCH ×3 (09:10→17:15)
[2019-03-19] MEDS: NAPROXEN 250 MG TAB PO SCH ×2 (09:10→16:50)
[2019-03-19] MEDS: GABAPENTIN 300 MG CAP PO SCH ×2 (09:10→15:49)
--- NOTE | 2019-03-19 11:50 | NUR ---
MEDICINE FOLLOW Date of encounter : 03/19/19 Coverage for: Dr. Adam Streeter. SUBJECTIVE: Still with a lot of pain BM+ RA FiO2 eating ok REVIEW OF SYSTEMS: no rash, no bleeding OBJECTIVE: VITAL SIGNS: vital signs reviewed per the chart record. GENERAL: NAD, in Bed, talking HEENT: Normocephalic and atraumatic. NECK: Supple. Throat midline. LUNGS: Bilateral air entry is moderate. No wheezes. CARDIOVASCULAR: S1 and S2. No murmurs, rubs, or gallops. ABDOMEN: Soft and nontender. EXTREMITIES: No clubbing. No cyanosis. trace edema to legs. INTEGUMENT: No rash. No purpura. LABORATORY DATA: no new updates Chest x-ray, clear. IMPRESSION AND PLAN: 1. Acute on chronic back pain. 2. Inability to function/severe debility, due to significant pain syndrome. 3. History of previous spinal surgery in 2017. 4. History of lung cancer surgery about a year and half ago. 5. Diabetes. 6. Hypertension. 7. Hyperlipidemia. 8. Chronic smoking. 9. Obesity. Continue the steroid taper d/c IVF Neurosurgery recommends no surgical intervention As the patient has debilitating pain, an inpatient pain medication service consult was ordered Other supportive care PT evaluation Thank you very much, [facility] for allowing Dr. Streeter and I had the chance to participate in the care of Mr. Thompson. Please call for questions.
[2019-03-19 12:00] VITALS: BP 129/80
[2019-03-19] MEDS ORDERED: FENTANYL 25 MCG/HR PATCH TOP ONE (15:45)
--- NOTE | 2019-03-19 17:18 | NUR ---
PT IS WITH [facility], PT HAS SET APPT TO F/U WITH CLINIC ON MONDAY.
--- NOTE | 2019-03-19 21:45 | NUR ---
discharge [id number]
--- NOTE | 2019-03-20 20:51 | Discharge Summary ---
PRIMARY CARE DOCTOR: [facility]. HOSPITAL PHYSICIAN: Dr. Adam Streeter. PRIMARY DIAGNOSES: Refractory back pain, inability to function. SECONDARY DIAGNOSES: Include: 1. Chronic back pain. 2. History of spinal surgery in 2017. 3. Lung cancer, status post surgery year and half ago. 4. Diabetes. 5. Hypertension. 6. Hyperlipidemia. 7. Chronic pain. 8. Obesity. FINAL IMAGING: Moderate spinal canal stenosis and moderate bilateral foraminal narrowing, possible sequestered disk, unchanged severe bilateral neuroforaminal narrowing at root at L4-L5, and a severe right foraminal narrowing at L5-S1. HOSPITAL COURSE: The patient for five days has had refractory back pain. He is not really able to function. He came to the emergency room and failed outpatient therapy. In the emergency room, he is escalated on multiple pain and comfort medicines as well as steroids. He was admitted as he cannot function. He came for emergency MRI, which did not show any neurosurgical targets. He was recommended for interventional pain management. The patient is arranged for followup in 3 days to reassess this with his [facility] doctors. The patient was participatory with the plan and he has multiple ambulatory assistive devices at home. DIET: At discharge is low-sodium. ACTIVITY: As tolerated, rest for the back. DISCHARGE MEDICATIONS: Per discharge medication administration record. Greater than 30 minutes in direct care and multiple coordinations today. MD SOBIA Penn/LAURI /[id number]
== END 2019-03-19 17:30 | disposition home or self-care (01) ==
LOC: ER 04:36 → ERHOLD 05:07 → IMCU 05:17
PROVIDERS: ADMIT Internal Medicine Critical Care Medicine; ATTEND Internal Medicine Critical Care Medicine
DX: M48.061 Spinal stenosis, lumbar region without neurogenic claudication (principal); G89.4 Chronic pain syndrome; E11.9 Type 2 diabetes mellitus without complications; F17.200 Nicotine dependence, unspecified, uncomplicated; Z85.118 Personal history of other malignant neoplasm of bronchus and lung; E66.9 Obesity, unspecified; Z68.36 Body mass index [BMI] 36.0-36.9, adult; M54.31 Sciatica, right side; M51.26 Other intervertebral disc displacement, lumbar region
CPT/HCPCS: 36415 ×2; 71045; 72148; 80053; 82948 ×2; 85025; 85610; 85730; 93005; 99284; G0378 ×2; J1170 ×2; J2060; J2405 ×2; J7030; S0164 ×2

== ENCOUNTER 2019-09-21 13:49 | Emergency (ER) | payer MEDICARE ==
[~2019-09-21] VITALS: Ht 180.3 cm; Wt 117.0 kg
[~2019-09-21 13:49] MED LIST changes: +GLIPIZIDE5 MG PO; +METFORMIN HCL500 MG PO; +PRAVASTATIN SOD40 MG
[2019-09-21] MEDS ORDERED: TETANUS/DIPHTHERIA TOX ADULT 0.5 ML SYR IM ONE (14:00)
--- NOTE | 2019-09-21 14:49 | Diagnostic Imaging Report ---
History:Fall Comparison studies:None Technique: Axial images were obtained from the skull base to the vertex. Coronal and sagittal images reconstructed from the axial data. Intravenous contrast: None Dose modulation, iterative reconstruction, and/or weight based adjustment of the mA/kV was utilized to reduce the radiation dose to as low as reasonably achievable. Findings: Scalp/skull: Left posterior left parietal scalp hematoma without fracture. Extra-axial spaces: No masses. No fluid collections. Brain sulci: Age-appropriate. Ventricles: Age-appropriate. No hydrocephalus. Parenchyma: No abnormal densities. No masses, hemorrhage, acute or chronic cortical vascular insults. Sellar/suprasellar region: No abnormalities. Craniocervical junction: Patent foramen magnum. No Chiari one malformation. Incidental findings: Atherosclerotic calcifications in the carotid siphons . Impression: No acute intracranial abnormalities. Left posterior parietal scalp hematoma without underlying fracture. Signed by: DR Arron Orta M.D. on 09/21/2019 2:46 PM
--- NOTE | 2019-09-21 15:09 | Diagnostic Imaging Report ---
History: Fall Comparison studies: None Technique: Axial images were obtained through the cervical region. Coronal and sagittal images reconstructed from the axial data. Intravenous contrast: None Dose modulation, iterative reconstruction, and/or weight based adjustment of the mA/kV was utilized to reduce the radiation dose to as low as reasonably achievable. Findings: Atlantoaxial articulation: Intact Alignment: Straightening of the normal lordosis. No scoliosis. Cervicomedullary junction: No abnormalities. Patent foramen magnum. Soft tissues: No gross abnormalities. Anterior plate and screw fusion and intervertebral spacers from C4 through C7. Vertebrae: No fractures, neoplasm or infection. Degenerative changes: C2-C3: Left uncinate process and facet hypertrophy results in moderate left foraminal narrowing without canal stenosis . C3-4: Disc degeneration with decreased intervertebral space. Diffuse disc osteophyte and bilateral uncinate process hypertrophy results in mild canal stenosis and moderate bilateral foraminal narrowing . C4-5: Intervertebral fusion and mild bilateral uncinate processes hypertrophy results in mild bilateral foraminal narrowing without significant canal stenosis . C5-6: Intervertebral fusion and bilateral uncinate processes hypertrophy results in moderate bilateral foraminal narrowing and mild canal stenosis . C6-7: Intervertebral fusion and bilateral uncinate processes hypertrophy results in moderate bilateral foraminal narrowing and mild canal stenosis . C7-T1: Patent spinal canal and foramina . Atherosclerotic calcifications of the carotid bulbs. IMPRESSION: 1. No acute cervical abnormality. 2. Cannot exclude ligament, spinal cord and or vascular abnormalities on the basis of this examination Signed by: DR Arron Orta M.D. on 09/21/2019 3:06 PM
== END 2019-09-21 16:31 | disposition home or self-care (01) ==
LOC: ER 13:49
DX: S09.90XA Unspecified injury of head, initial encounter (principal); S01.01XA Laceration without foreign body of scalp, initial encounter; W01.0XXA Fall on same level from slipping, tripping and stumbling without subsequent striking against object, initial encounter; Y92.008 Other place in unspecified non-institutional (private) residence as the place of occurrence of the external cause; S00.93XA Contusion of unspecified part of head, initial encounter; I10 Essential (primary) hypertension; E11.9 Type 2 diabetes mellitus without complications; Z79.84 Long term (current) use of oral hypoglycemic drugs; Z23 Encounter for immunization
CPT/HCPCS: 70450; 72125; 90471; 90714; 99283

== ENCOUNTER 2021-01-17 20:28 | Inpatient (IN) | payer MEDICARE ==
[~2021-01-17] VITALS: Ht 180.3 cm; Wt 122.1 kg
[2021-01-17] MEDS ORDERED: ONDANSETRON HCL INJ 2MG/ML 2ML 2 MG/ML VIAL IV STA (20:40)
[2021-01-17] MEDS ORDERED: MORPHINE SULFATE INJ 4 MG/ML INJ 1ML IV STA (20:40)
[2021-01-17 21:00] LABS: BASOPHILS % 0.5 % (0.0-1.0); EOSINOPHILS # (AUTO) 0.2 (0.0-0.4); EOSINOPHILS % 2.6 % (0.0-6.0); HEMATOCRIT 49.9 % (38.2-49.6); HEMOGLOBIN 15.4 g/dL (14.0-18.0); MEAN CORPUSCULAR HEMOGLOBIN 28.2 pg (28-32); MEAN CORPUSCULAR HGB CONC 30.9 g/dL (31-35); MEAN CORPUSCULAR VOLUME 91.2 fL (81-99); MONOCYTES # (AUTO) 0.6 (0.2-0.8); MONOCYTES % 7.1 % (4.4-11.3); NEUTROPHILS # (AUTO) 6.4 (2.1-6.9); NEUTROPHILS % 77.4 % (38.7-80.0); PLATELET COUNT 200 x10e3/uL (140-360); RED BLOOD COUNT 5.47 x10e6/uL (4.3-5.7); RED CELL DISTRIBUTION WIDTH 14.2 % (11.7-14.4)
[2021-01-17 21:16] LABS: ALANINE AMINOTRANSFERASE 15 IU/L (0-55); ALBUMIN 3.8 g/dL (3.5-5.0); ALBUMIN/GLOBULIN RATIO 1.1 (0.8-2.0); ALKALINE PHOSPHATASE 65 IU/L (40-150); ANION GAP 16.3 mmol/L (8-16); BLOOD UREA NITROGEN 10 mg/dL (7-26); BUN/CREATININE RATIO 11 (6-25); CALCIUM 9.5 mg/dL (8.4-10.2); CARBON DIOXIDE 29 mmol/L (22-29); CHLORIDE 97 mmol/L (98-107); CREATININE, SERUM 0.87 mg/dL (0.72-1.25); EST GLOMERULAR FILTRATION RATE > 60 ML/MIN (60-); GLUCOSE 167 mg/dL (74-118); LIPASE 30 U/L (8-78); POTASSIUM 4.3 mmol/L (3.5-5.1); SODIUM 138 mmol/L (136-145)
[2021-01-17] MEDS ORDERED: PROVENTIL HFA6.7 GM INH (21:27)
[2021-01-17] MEDS ORDERED: FUROSEMIDE40 MG PO (21:27)
[2021-01-17] MEDS ORDERED: ADVAIR 100-501 EACH INH (21:27)
[2021-01-17] MEDS ORDERED: LORAZEPAM INJ 2 MG/ML VIAL IV ONE (21:45)
[2021-01-17] MEDS ORDERED: HYDROMORPHONE 1MG/1ML INJ IV PRN (21:45)
[2021-01-17] MEDS ORDERED: IOPAMIDOL 370 MG/ML 200 ML INFUS..BTL INJ ONE (22:00)
[2021-01-17] MEDS ORDERED: SODIUM CHLORIDE 0.9% 50ML 50 ML ONE (22:00)
[2021-01-17] MEDS: PIPERACILLIN/TAZOBACTAM 3.375 GM in SODIUM CHLORIDE 0.9% 50ML 50 ML IV SCH (23:58)
[2021-01-18] VITALS (9 sets, daily range): BP systolic 115–149; BP diastolic 71–99
[2021-01-18] MEDS: SODIUM CHLORIDE 0.9% 1000ML 1,000 ML IV SCH ×2 (01:28→08:15)
[2021-01-18] MEDS: HYDROMORPHONE 1MG/1ML INJ IV PRN ×7 (01:35→20:02)
[2021-01-18 03:11] LABS: CLARITY,URINE CLEAR (CLEAR); COLOR,URINE YELLOW (YELLOW); KETONES,URINE NEGATIVE (NEGATIVE); LEUKOCYTE ESTERASE ,URINE NEGATIVE (NEGATIVE); NITRITE,URINE NEGATIVE (NEGATIVE); PROTEIN,URINE DIPSTICK NEGATIVE (NEGATIVE); RBC,URINE 0-5 /HPF (0-5); URINE UROBILINOGEN 0.2 mg/dL (0.2 - 1); WBC,URINE (MAN) 0-5 /HPF (0-5)
[2021-01-18 03:12] LABS: BACTERIA,URINE FEW /HPF; EPITHELIAL CELLS,URINE FEW /LPF
[2021-01-18] MEDS: PIPERACILLIN/TAZOBACTAM 3.375 GM in SODIUM CHLORIDE 0.9% 50ML 50 ML IV SCH ×3 (05:22→22:04)
[2021-01-18 08:33] LABS: BASOPHILS # (AUTO) 0.1 (0.0-0.1); BASOPHILS % 0.7 % (0.0-1.0); EOSINOPHILS # (AUTO) 0.3 (0.0-0.4); HEMATOCRIT 48.7 % (38.2-49.6); HEMOGLOBIN 15.1 g/dL (14.0-18.0); LYMPHOCYTES # (AUTO) 0.9 (1.0-3.2); LYMPHOCYTES % 9.9 % (18.0-39.1); MEAN CORPUSCULAR HEMOGLOBIN 28.7 pg (28-32); MEAN CORPUSCULAR VOLUME 92.4 fL (81-99); MONOCYTES # (AUTO) 0.8 (0.2-0.8); MONOCYTES % 8.4 % (4.4-11.3); NEUTROPHILS # (AUTO) 6.9 (2.1-6.9); NEUTROPHILS % 77.6 % (38.7-80.0); PLATELET COUNT 189 x10e3/uL (140-360); RED BLOOD COUNT 5.27 x10e6/uL (4.3-5.7); RED CELL DISTRIBUTION WIDTH 14.4 % (11.7-14.4)
[2021-01-18 09:00] LABS: ALANINE AMINOTRANSFERASE 14 IU/L (0-55); ALBUMIN 3.7 g/dL (3.5-5.0); ALKALINE PHOSPHATASE 58 IU/L (40-150); ANION GAP 14.8 mmol/L (8-16); BLOOD UREA NITROGEN 10 mg/dL (7-26); BUN/CREATININE RATIO 13 (6-25); CALCIUM 9.1 mg/dL (8.4-10.2); CARBON DIOXIDE 30 mmol/L (22-29); CHLORIDE 98 mmol/L (98-107); CREATININE, SERUM 0.77 mg/dL (0.72-1.25); EST GLOMERULAR FILTRATION RATE > 60 ML/MIN (60-); GLUCOSE 110 mg/dL (74-118); POTASSIUM 4.8 mmol/L (3.5-5.1); SODIUM 138 mmol/L (136-145)
[2021-01-18] MEDS: DEXTROSE 5%/0.9% SOD CHL 1,000 ML IV SCH ×2 (09:08→19:00)
[2021-01-18] MEDS: FAMOTIDINE 20 MG/2 ML VIAL IV SCH ×2 (09:08→16:58)
[2021-01-18 09:28] LABS: CREATINE KINASE 55 IU/L (30-200)
[2021-01-18] MEDS ORDERED: ALBUTEROL/IPRATROPIUM 3 ML NEB NEB PRN (11:15)
[2021-01-18] MEDS ORDERED: ALBUTEROL SULFATE HFA 8GM INHALATION AEROSOL INH PRN (11:15)
[2021-01-18 11:41] LABS: CREATINE KINASE 59 IU/L (30-200)
[2021-01-18 15:35] LABS: CREATINE KINASE 67 IU/L (30-200)
[2021-01-18] MEDS: ONDANSETRON HCL INJ 2MG/ML 2ML 2 MG/ML VIAL IV PRN (16:58)
[2021-01-18] MEDS: NICOTINE 21 MG/EA PATCH TOP PRN ×2 (18:48)
[2021-01-18] MEDS: LORAZEPAM INJ 2 MG/ML VIAL IV PRN (21:06)
[2021-01-19] VITALS (8 sets, daily range): BP systolic 127–164; BP diastolic 75–97
[2021-01-19] MEDS: DEXTROSE 5%/0.9% SOD CHL 1,000 ML IV SCH ×3 (03:20→23:13)
[2021-01-19] MEDS: ONDANSETRON HCL INJ 2MG/ML 2ML 2 MG/ML VIAL IV PRN ×2 (03:21→22:30)
[2021-01-19] MEDS: HYDROMORPHONE 1MG/1ML INJ IV PRN ×6 (03:21→22:30)
[2021-01-19] MEDS: LORAZEPAM INJ 2 MG/ML VIAL IV PRN ×3 (04:06→21:30)
[2021-01-19] MEDS: PIPERACILLIN/TAZOBACTAM 3.375 GM in SODIUM CHLORIDE 0.9% 50ML 50 ML IV SCH ×3 (06:13→21:30)
[2021-01-19] MEDS: FAMOTIDINE 20 MG/2 ML VIAL IV SCH ×2 (09:05→17:19)
[2021-01-19] MEDS ORDERED: HYDRALAZINE HCL 20 MG/ML VIAL IV PRN (11:15)
[2021-01-19] MEDS ORDERED: POVIDONE IODINE 0.05% 0.05 % ML PO ONE (11:35)
[2021-01-19] MEDS ORDERED: PROPOFOL IV EMULSION 10 MG/ML 20 ML VIAL ONE (11:35)
[2021-01-19] MEDS ORDERED: BUPIVACAINE 7.5MG/ML /DEXTROSE 82.5MG/ML 2 ML AMP INJ ONE (13:18)
[2021-01-19] MEDS ORDERED: BUPIVACAINE 0.25% 30ML SDV ONE ×2 (13:20→14:04)
[2021-01-19] MEDS ORDERED: BUPIVACAINE LIPOSOME/PF 266 MG/20 ML IJ ONE (13:20)
[2021-01-19] MEDS ORDERED: LIDOCAINE 1% W/EPINEPHRINE 20 ML VIAL ONE ×2 (13:55→14:04)
[2021-01-19] MEDS ORDERED: PIPERACILLIN/TAZOBACTAM 3.375 GM VIAL ONE (14:03)
[2021-01-19] MEDS ORDERED: SODIUM CHLORIDE 0.9% 50ML 50 ML ONE (14:04)
[2021-01-19] MEDS ORDERED: ONDANSETRON HCL INJ 2MG/ML 2ML 2 MG/ML VIAL IV PRN (15:30)
[2021-01-19] MEDS ORDERED: KETOROLAC TROMETHAMINE 30 MG/ML VIAL IV PRN (15:30)
[2021-01-19] MEDS ORDERED: ACETAMINOPHEN 1000 MG/100 ML IV PRN (15:30)
[2021-01-19] MEDS ORDERED: HYDROCODONE/APAP 7.5MG-325MG 1 EA TAB PO PRN (15:30)
[2021-01-19] MEDS: NICOTINE 21 MG/EA PATCH TOP PRN (18:06)
[2021-01-20] VITALS (8 sets, daily range): BP systolic 133–149; BP diastolic 73–82
[2021-01-20] MEDS: HYDROMORPHONE 1MG/1ML INJ IV PRN ×5 (01:35→22:01)
[2021-01-20] MEDS: LORAZEPAM INJ 2 MG/ML VIAL IV PRN ×3 (02:53→20:29)
[2021-01-20 05:24] LABS: BASOPHILS % 0.3 % (0.0-1.0); EOSINOPHILS # (AUTO) 0.1 (0.0-0.4); EOSINOPHILS % 1.4 % (0.0-6.0); HEMATOCRIT 46.3 % (38.2-49.6); HEMOGLOBIN 14.6 g/dL (14.0-18.0); LYMPHOCYTES # (AUTO) 0.8 (1.0-3.2); LYMPHOCYTES % 8.7 % (18.0-39.1); MEAN CORPUSCULAR HEMOGLOBIN 29.1 pg (28-32); MEAN CORPUSCULAR HGB CONC 31.5 g/dL (31-35); MEAN CORPUSCULAR VOLUME 92.2 fL (81-99); MONOCYTES % 10.1 % (4.4-11.3); NEUTROPHILS # (AUTO) 7.5 (2.1-6.9); NEUTROPHILS % 79.2 % (38.7-80.0); PLATELET COUNT 168 x10e3/uL (140-360); RED BLOOD COUNT 5.02 x10e6/uL (4.3-5.7); RED CELL DISTRIBUTION WIDTH 14.2 % (11.7-14.4)
[2021-01-20] MEDS: PIPERACILLIN/TAZOBACTAM 3.375 GM in SODIUM CHLORIDE 0.9% 50ML 50 ML IV SCH ×3 (05:33→22:06)
[2021-01-20] MEDS: ONDANSETRON HCL INJ 2MG/ML 2ML 2 MG/ML VIAL IV PRN (05:33)
[2021-01-20 05:44] LABS: BLOOD UREA NITROGEN 11 mg/dL (7-26); BUN/CREATININE RATIO 14 (6-25); CALCIUM 9.5 mg/dL (8.4-10.2); CARBON DIOXIDE 28 mmol/L (22-29); CHLORIDE 98 mmol/L (98-107); CREATININE, SERUM 0.81 mg/dL (0.72-1.25); EST GLOMERULAR FILTRATION RATE > 60 ML/MIN (60-); GLUCOSE 110 mg/dL (74-118); SODIUM 138 mmol/L (136-145)
[2021-01-20] MEDS: FAMOTIDINE 20 MG/2 ML VIAL IV SCH ×2 (08:58→17:29)
[2021-01-20] MEDS: DEXTROSE 5%/0.9% SOD CHL 1,000 ML IV SCH (11:00)
[2021-01-21] VITALS: BP 128/82
[2021-01-21] MEDS: HYDROMORPHONE 1MG/1ML INJ IV PRN ×3 (01:29→08:15)
[2021-01-21 04:00] VITALS: BP 139/80
[2021-01-21] MEDS: PIPERACILLIN/TAZOBACTAM 3.375 GM in SODIUM CHLORIDE 0.9% 50ML 50 ML IV SCH (06:01)
[2021-01-21] MEDS: DEXTROSE 5%/0.9% SOD CHL 1,000 ML IV SCH (06:29)
[2021-01-21 07:47] VITALS: BP 144/82
[2021-01-21] MEDS: FAMOTIDINE 20 MG/2 ML VIAL IV SCH (08:15)
[2021-01-21 08:41] VITALS: BP 144/82
[2021-01-21] MEDS: LORAZEPAM INJ 2 MG/ML VIAL IV PRN (08:51)
[2021-01-21] MEDS ORDERED: LORAZEPAM INJ 2 MG/ML VIAL IV PRN (09:30)
[2021-01-21] MEDS ORDERED: HYDROMORPHONE 1MG/1ML INJ IV PRN (09:30)
[2021-01-21] MEDS ORDERED: ONDANSETRON HCL INJ 2MG/ML 2ML 2 MG/ML VIAL IV PRN (09:30)
== END 2021-01-21 11:40 | disposition home or self-care (01) | DRG 354 ==
LOC: ER 20:33 → ERHOLD 01-18 00:01 → MED/SURG 01-18 00:46
PROVIDERS: ADMIT Internal Medicine; ATTEND Internal Medicine
PROC: 0WUF0JZ Supplement Abdominal Wall with Synthetic Substitute, Open Approach (ICD-10-PCS; principal; 2021-01-19 12:30)
DX: K43.6 Other and unspecified ventral hernia with obstruction, without gangrene (principal); J96.10 Chronic respiratory failure, unspecified whether with hypoxia or hypercapnia; I10 Essential (primary) hypertension; E11.9 Type 2 diabetes mellitus without complications; E78.5 Hyperlipidemia, unspecified; E66.01 Morbid (severe) obesity due to excess calories; J44.9 Chronic obstructive pulmonary disease, unspecified; G47.33 Obstructive sleep apnea (adult) (pediatric); Z68.37 Body mass index [BMI] 37.0-37.9, adult; Z85.118 Personal history of other malignant neoplasm of bronchus and lung; Z99.81 Dependence on supplemental oxygen; Z20.822 Contact with and (suspected) exposure to COVID-19; Z79.84 Long term (current) use of oral hypoglycemic drugs
CPT/HCPCS: 36415; 74177; 80048; 80053; 81001; 82550; 82553; 83690; 84484; 85025; 88302; 88304; 93005; 99284; C1781; J1170; J2060; J2270; J2405; J2543; J7030; J7042; Q9967; U0002

== ENCOUNTER 2021-10-17 12:18 | Inpatient (IN) | payer MEDICARE ==
[~2021-10-17] VITALS: Ht 180.3 cm; Wt 122.0 kg
[~2021-10-17 12:18] MED LIST changes: +ADVAIR 100-501 EACH INH; +FUROSEMIDE40 MG PO; +PROVENTIL HFA6.7 GM INH
[2021-10-17 12:53] LABS: BASOPHILS # (AUTO) 0.1 (0.0-0.1); BASOPHILS % 0.5 % (0.0-1.0); EOSINOPHILS # (AUTO) 0.1 (0.0-0.4); EOSINOPHILS % 1.1 % (0.0-6.0); HEMATOCRIT 47.8 % (38.2-49.6); HEMOGLOBIN 15.7 g/dL (14.0-18.0); LYMPHOCYTES % 10.6 % (18.0-39.1); MEAN CORPUSCULAR HEMOGLOBIN 30.1 pg (28-32); MEAN CORPUSCULAR HGB CONC 32.8 g/dL (31-35); MEAN CORPUSCULAR VOLUME 91.6 fL (81-99); MONOCYTES # (AUTO) 0.7 (0.2-0.8); MONOCYTES % 7.3 % (4.4-11.3); NEUTROPHILS # (AUTO) 7.9 (2.1-6.9); NEUTROPHILS % 80.3 % (38.7-80.0); PLATELET COUNT 166 x10e3/uL (140-360); RED BLOOD COUNT 5.22 x10e6/uL (4.3-5.7)
[2021-10-17 12:55] LABS: CLARITY,URINE CLEAR (CLEAR); LEUKOCYTE ESTERASE ,URINE NEGATIVE (NEGATIVE); NITRITE,URINE NEGATIVE (NEGATIVE)
[2021-10-17 12:56] LABS: COLOR,URINE STRAW (YELLOW); KETONES,URINE NEGATIVE (NEGATIVE); PROTEIN,URINE DIPSTICK NEGATIVE (NEGATIVE); URINE UROBILINOGEN 1 mg/dL (0.2 - 1)
[2021-10-17] MEDS ORDERED: METHYLPREDNISOLONE SOD SUCC 125 MG/2ML VIAL IV STA (13:01)
[2021-10-17 13:03] LABS: INR 0.87; PROTHROMBIN TIME 12.6 seconds (11.9-14.5)
[2021-10-17 13:04] LABS: PARTIAL THROMBOPLASTIN TIME 28.1 seconds (23.8-35.5)
[2021-10-17 13:14] LABS: ALBUMIN/GLOBULIN RATIO 1.1 (0.8-2.0); ANION GAP 17.1 mmol/L (8-16); CALCIUM 10.2 mg/dL (8.4-10.2); CREATININE, SERUM 0.79 mg/dL (0.72-1.25); MAGNESIUM 1.9 MG/DL (1.3-2.1); POTASSIUM 4.1 mmol/L (3.5-5.1)
[2021-10-17] MEDS ORDERED: ALBUTEROL/IPRATROPIUM 3 ML NEB NEB ONE (13:15)
[2021-10-17] MEDS ORDERED: PIPERACILLIN/TAZOBACTAM 3.375 GM in SODIUM CHLORIDE 0.9% 50ML 50 ML IV ONE (13:15)
[2021-10-17] MEDS ORDERED: SODIUM CHLORIDE 0.9% 500ML 500 ML IV ONE ×2 (13:15→14:00)
[2021-10-17 13:17] LABS: B-TYPE NATRIURETIC PEPTIDE2 21.9 pg/mL (0-100)
[2021-10-17 13:20] LABS: CREATINE KINASE MB 4.4 ng/mL (0-5.0)
[2021-10-17] MEDS ORDERED: Vancomycin IV 1 GM in SODIUM CHLORIDE 0.9% 250ML 250 ML IV ONE (14:00)
[2021-10-17] MEDS ORDERED: SODIUM CHLORIDE 0.9% 1000ML 1,000 ML IV SCH (14:15)
[2021-10-17] MEDS ORDERED: HYDROMORPHONE 1MG/1ML INJ IV PRN (14:15)
[2021-10-17] MEDS ORDERED: ONDANSETRON HCL INJ 2MG/ML 2ML 2 MG/ML VIAL IV PRN (14:15)
[2021-10-17] MEDS ORDERED: DEXTROSE 50% SYRINGE 50 ML IV PRN ×2 (14:15→18:45)
[2021-10-17] MEDS ORDERED: CLOTRIMAZOLE-BE15 GM TOP (14:35)
[2021-10-17] MEDS: ALBUTEROL/IPRATROPIUM 3 ML NEB NEB SCH ×3 (15:00→23:15)
[2021-10-17] MEDS: FAMOTIDINE 20 MG/2 ML VIAL IV SCH (15:01)
[2021-10-17 16:02] VITALS: BP 135/69
[2021-10-17] MEDS ORDERED: INSULIN LISPRO 100 UNIT/1 ML 3ML VIAL SQ SCH (16:30)
[2021-10-17] MEDS ORDERED: NICOTINE 21 MG/EA PATCH TOP PRN (17:30)
[2021-10-17] MEDS ORDERED: FUROSEMIDE INJ 10 MG/ML 4 ML VIAL IV SCH (18:45)
[2021-10-17] MEDS ORDERED: CLONIDINE HCL 0.1 MG TAB PO PRN (18:45)
[2021-10-17 18:55] LABS: CREATINE KINASE MB 4.5 ng/mL (0-5.0)
[2021-10-17] MEDS: BETAMETHASONE/CLOTRIMAZOLE CR 15 GM TUBE TOP SCH (19:00)
[2021-10-17 19:50] VITALS: BP 140/72
[2021-10-17 20:00] VITALS: BP 140/72
[2021-10-17] MEDS: PIPERACILLIN/TAZOBACTAM 3.375 GM in SODIUM CHLORIDE 0.9% 50ML 50 ML IV SCH (20:24)
[2021-10-17] MEDS: METHYLPREDNISOLONE SOD SUCC 125 MG/2ML VIAL IV SCH (20:25)
[2021-10-17] MEDS: HYDROCODONE/APAP 10MG-325MG TAB PO PRN (20:25)
[2021-10-17] MEDS: GABAPENTIN 300 MG CAP PO SCH (20:25)
[2021-10-17] MEDS ORDERED: INSULIN REGULAR, HUMAN 100 UNIT/1 ML SQ SCH (21:00)
[2021-10-17] MEDS ORDERED: PRAVASTATIN 20 MG TAB PO SCH (21:00)
[2021-10-17] MEDS ORDERED: LORAZEPAM INJ 2 MG/ML VIAL IV ONE (21:15)
[2021-10-17] MEDS ORDERED: SODIUM CHLORIDE 0.9% 50ML 50 ML ONE (22:10)
[2021-10-17] MEDS ORDERED: IOPAMIDOL 370 MG/ML 200 ML INFUS..BTL INJ ONE (22:10)
[2021-10-18] VITALS: BP 132/67
[2021-10-18] MEDS: FAMOTIDINE 20 MG/2 ML VIAL IV SCH ×2 (01:40→11:00)
[2021-10-18] MEDS: ALBUTEROL/IPRATROPIUM 3 ML NEB NEB SCH ×3 (03:00→11:39)
[2021-10-18] MEDS: HYDROCODONE/APAP 10MG-325MG TAB PO PRN (03:41)
[2021-10-18 04:00] VITALS: BP 150/70
[2021-10-18] MEDS: PIPERACILLIN/TAZOBACTAM 3.375 GM in SODIUM CHLORIDE 0.9% 50ML 50 ML IV SCH ×4 (05:00→11:00)
[2021-10-18 05:31] LABS: HEMATOCRIT 47.7 % (38.2-49.6); HEMOGLOBIN 15.1 g/dL (14.0-18.0); LYMPHOCYTES # (AUTO) 0.5 (1.0-3.2); LYMPHOCYTES % 5.9 % (18.0-39.1); MEAN CORPUSCULAR HEMOGLOBIN 29.9 pg (28-32); MEAN CORPUSCULAR HGB CONC 31.7 g/dL (31-35); MEAN CORPUSCULAR VOLUME 94.5 fL (81-99); MONOCYTES # (AUTO) 0.1 (0.2-0.8); MONOCYTES % 1.8 % (4.4-11.3); NEUTROPHILS # (AUTO) 7.4 (2.1-6.9); NEUTROPHILS % 91.8 % (38.7-80.0); PLATELET COUNT 175 x10e3/uL (140-360); RED BLOOD COUNT 5.05 x10e6/uL (4.3-5.7); RED CELL DISTRIBUTION WIDTH 14.4 % (11.7-14.4)
[2021-10-18] MEDS: METHYLPREDNISOLONE SOD SUCC 125 MG/2ML VIAL IV SCH ×2 (05:48→12:40)
[2021-10-18 06:53] LABS: ALBUMIN 3.9 g/dL (3.5-5.0); ANION GAP 17.1 mmol/L (8-16); CALCIUM 10.3 mg/dL (8.4-10.2); CREATININE, SERUM 0.92 mg/dL (0.72-1.25); POTASSIUM 5.1 mmol/L (3.5-5.1)
[2021-10-18 07:13] LABS: CREATINE KINASE MB 3.8 ng/mL (0-5.0)
[2021-10-18 07:59] VITALS: BP 140/81
[2021-10-18] MEDS: GLIPIZIDE 5 MG TAB PO SCH ×2 (08:10→15:25)
[2021-10-18] MEDS: GABAPENTIN 300 MG CAP PO SCH ×2 (08:10→15:00)
[2021-10-18] MEDS ORDERED: diclofenac sodium TOP (08:14)
[2021-10-18] MEDS ORDERED: LOSARTAN POTASS25 MG PO (08:14)
[2021-10-18] MEDS: BETAMETHASONE/CLOTRIMAZOLE CR 15 GM TUBE TOP SCH ×2 (09:00→15:26)
[2021-10-18] MEDS ORDERED: FUROSEMIDE 40 MG TAB PO SCH (09:00)
[2021-10-18] MEDS ORDERED: SODIUM CHLORIDE 0.9% 250ML 250 ML ONE (11:09)
[2021-10-18] MEDS ORDERED: DOXYCYCLINE HY100 MG PO (11:27)
[2021-10-18] MEDS ORDERED: FUROSEMIDE INJ 10 MG/ML 4 ML VIAL IV ONE (14:00)
[2021-10-18] MEDS ORDERED: ONDANSETRON HCL 4 MG ORAL DISINTEGRATING TAB PO PRN (15:30)
[2021-10-18 15:41] VITALS: BP 150/80
[2021-10-18] MEDS ORDERED: ENOXAPARIN SOD INJ 40 MG/0.4 ML SYR SC SCH (17:00)
== END 2021-10-18 16:21 | disposition home or self-care (01) | DRG 603 ==
LOC: ER 12:21 → ERHOLD 14:05 → MED/SURG2 15:52
PROVIDERS: ADMIT Internal Medicine; ATTEND Internal Medicine
DX: L03.116 Cellulitis of left lower limb (principal); C34.90 Malignant neoplasm of unspecified part of unspecified bronchus or lung; L03.115 Cellulitis of right lower limb; J44.9 Chronic obstructive pulmonary disease, unspecified; G89.29 Other chronic pain; F17.200 Nicotine dependence, unspecified, uncomplicated; Z99.81 Dependence on supplemental oxygen; E11.9 Type 2 diabetes mellitus without complications; Z79.4 Long term (current) use of insulin
CPT/HCPCS: 36415; 71045; 71260; 80053; 81001; 82550; 82553; 83605; 83735; 83880; 84484; 85025; 85610; 85730; 87040; 87086; 93005; 93306; 93970; 94640; 94799; 99284; J1650; J1940; J2060; J2543; J2930; J3370; J7030; J7040; J7050; Q9967; U0002